=== PATIENT | female | born 1975 | race Caucasian/White ===

== ENCOUNTER 2020-11-23 10:45 | Emergency (ER) | payer OTHER ==
[~2020-11-23] VITALS: Ht 167.6 cm; Wt 61.4 kg
[2020-11-23 12:30] LABS: BASOPHILS % (AUTO) 0.6 % (0.0-2.0); EOSINOPHILS % (AUTO) 0.5 % (1.0-6.0); HEMATOCRIT 36.9 % (36-46); HEMOGLOBIN 12.7 g/dL (12.0-16.0); LYMPHOCYTES # (AUTO) 1.7 K/uL (1.0-4.8); LYMPHOCYTES % (AUTO) 17.2 % (22.0-44.0); MEAN CORPUSCULAR HEMOGLOBIN 28.6 pg (26.0-34.0); MEAN CORPUSCULAR HGB CONC 34.4 G/dL (31.0-37.0); MEAN CORPUSCULAR VOLUME 83 fL (80-100); MONOCYTES # (AUTO) 0.7 K/uL (0.1-1.0); MONOCYTES % (AUTO) 6.7 % (2.0-9.0); NEUTROPHILS # (AUTO) 7.6 K/uL (1.8-7.7); PLATELET COUNT (AUTO) 255 K/uL (150-450); RED BLOOD CELL COUNT(AUTO) 4.43 MIL/uL (4.00-5.20); RED CELL DISTRIBUTION WIDTH 13.9 % (11.5-14.5)
[2020-11-23 12:43] LABS: ANION GAP 11 mmol/L (8-16); CALCIUM, TOTAL 8.5 mg/dL (8.8-10.5); CARBON DIOXIDE 25 mmol/L (22-29); CHLORIDE 101 mmol/L (98-107); CREATININE 0.63 mg/dL (0.60-1.30); GLOMERULAR FILTR. RATE CALC > 60 mL/min (>60); GLUCOSE,RANDOM 90 mg/dL (70-110); SODIUM SERUM 137 mmol/L (136-145); UREA NITROGEN, BLOOD 17 mg/dL (7-18)
[2020-11-23 12:53] LABS: ALANINE AMINOTRANSFERASE 28 U/L (12-78); ALBUMIN 3.4 g/dL (3.4-5.0); ALKALINE PHOSPHATASE 70 U/L (46-116); ASPARTATE AMINOTRANSFERASE 17 U/L (15-37); BILIRUBIN,TOTAL 0.4 mg/dL (0.1-1.0); HCG,QUANTITATIVE < 1 mIU/mL (0-6); TOTAL PROTEIN, SERUM 7.1 g/dL (6.4-8.2)
[2020-11-23 13:30] VITALS: BP 121/73
[2020-11-23 13:49] LABS: AMPHET/METH SCREEN,URINE POSITIVE (NEGATIVE); BARBITURATE SCREEN, URINE NEGATIVE (NEGATIVE); BENZODIAZEPINES SCREEN,URINE NEGATIVE (NEGATIVE); CANNABINOID SCREEN,URINE POSITIVE (NEGATIVE); COCAINE SCREEN,URINE NEGATIVE (NEGATIVE); METHADONE SCREEN, URINE NEGATIVE (NEGATIVE); OPIATE SCREEN,URINE NEGATIVE (NEGATIVE); PHENCYCLIDINE SCREEN,URINE NEGATIVE (NEGATIVE)
== END 2020-11-23 14:20 | disposition home or self-care (01) ==
LOC: EMS 10:45
DX: F20.9 Schizophrenia, unspecified (principal); L03.011 Cellulitis of right finger; F15.10 Other stimulant abuse, uncomplicated; F17.210 Nicotine dependence, cigarettes, uncomplicated; Z88.6 Allergy status to analgesic agent
CPT/HCPCS: 36415; 80053; 80307; 84702; 85025; 99285; G0480

== ENCOUNTER 2022-07-16 14:42 | Inpatient (IN) | payer MEDICAID, OTHER ==
[~2022-07-16] VITALS: Ht 198.1 cm; Wt 52.0 kg
[2022-07-16] MEDS ORDERED: LORazepam 2 MG/ML VIAL ONE (18:55)
[2022-07-16] MEDS ORDERED: HALOPERIDOL LACTATE 5 MG/ML VIAL ONE (18:55)
[2022-07-16] MEDS ORDERED: DiphenhydrAMINE HCL 50 MG/ML VIAL ONE (18:56)
[2022-07-16] MEDS ORDERED: DiphenhydrAMINE HCL 50 MG/ML VIAL IM ONE (19:00)
[2022-07-16] MEDS ORDERED: HALOPERIDOL LACTATE 5 MG/ML VIAL IM ONE (19:00)
[2022-07-16] MEDS ORDERED: LORazepam 2 MG/ML VIAL IM ONE (19:00)
[2022-07-16 19:18] LABS: AMPHET/METH SCREEN,URINE POSITIVE (NEGATIVE); BARBITURATE SCREEN, URINE NEGATIVE (NEGATIVE); BENZODIAZEPINES SCREEN,URINE NEGATIVE (NEGATIVE); CANNABINOID SCREEN,URINE POSITIVE (NEGATIVE); COCAINE SCREEN,URINE NEGATIVE (NEGATIVE); METHADONE SCREEN, URINE NEGATIVE (NEGATIVE); OPIATE SCREEN,URINE NEGATIVE (NEGATIVE); PHENCYCLIDINE SCREEN,URINE NEGATIVE (NEGATIVE)
[2022-07-16 20:01] LABS: BASOPHILS % (AUTO) 0.7 % (0.0-2.0); HEMATOCRIT 38.6 % (36-46); HEMOGLOBIN 12.7 g/dL (12.0-16.0); LYMPHOCYTES # (AUTO) 2.8 K/uL (1.0-4.8); LYMPHOCYTES % (AUTO) 23.2 % (22.0-44.0); MEAN CORPUSCULAR VOLUME 85 fL (80-100); MONOCYTES # (AUTO) 0.6 K/uL (0.1-1.0); NEUTROPHILS # (AUTO) 8.5 K/uL (1.8-7.7); NEUTROPHILS % (AUTO) 70.1 % (40.0-70.0); PLATELET COUNT (AUTO) 273 K/uL (150-450); RED BLOOD CELL COUNT(AUTO) 4.55 MIL/uL (4.00-5.20); RED CELL DISTRIBUTION WIDTH 14.9 % (11.5-14.5)
[2022-07-16 20:12] LABS: ANION GAP 7 mmol/L (8-16); CALCIUM, TOTAL 8.6 mg/dL (8.8-10.5); CARBON DIOXIDE 24 mmol/L (22-29); CHLORIDE 105 mmol/L (98-107); GLUCOSE,RANDOM 94 mg/dL (70-110); POTASSIUM 3.7 mmol/L (3.5-5.1); SODIUM SERUM 136 mmol/L (136-145); UREA NITROGEN, BLOOD 14 mg/dL (7-18)
[2022-07-16 20:14] LABS: GLOMERULAR FILTR. RATE CALC > 60 mL/min (>60)
[2022-07-16 20:18] LABS: ALANINE AMINOTRANSFERASE 25 U/L (12-78); ALBUMIN 3.7 g/dL (3.4-5.0); ALKALINE PHOSPHATASE 48 U/L (46-116); ASPARTATE AMINOTRANSFERASE 19 U/L (15-37); BILIRUBIN,TOTAL 0.4 mg/dL (0.1-1.0); TOTAL PROTEIN, SERUM 6.6 g/dL (6.4-8.2)
[2022-07-16] MEDS ORDERED: ZOLPIDEM TARTRATE 10 MG TABLET PO PRN (21:30)
[2022-07-16] MEDS ORDERED: LORazepam 2 MG TABLET PO PRN (21:30)
[2022-07-16] MEDS ORDERED: OLANZapine 5 MG RAPDIS TABLET PO PRN (21:30)
[2022-07-16 22:07] LABS: COVID AG,FIA SOURCE NASAL SWAB
[2022-07-17 04:58] VITALS: BP 104/65
[2022-07-17 09:05] VITALS: BP 99/54
[2022-07-17] MEDS ORDERED: TUBERCULIN, PURIFIED PROTEIN DERIVATIVE 5 TU/0.1 ML SYRINGE ID ONE (12:15)
[2022-07-17] MEDS ORDERED: ACETAMINOPHEN 325 MG TABLET PO PRN (12:15)
[2022-07-17] MEDS ORDERED: PROMETHAZINE HCL 25 MG TABLET PO PRN (12:15)
[2022-07-17] MEDS ORDERED: LOPERAMIDE HCL 2 MG CAPSULE PO PRN (12:15)
[2022-07-17] MEDS ORDERED: HydrOXYzine PAMOATE 50 MG CAPSULE PO PRN (12:15)
[2022-07-17] MEDS ORDERED: MAGNESIUM HYDROXIDE SUSPENSION 30 ML UDCUP PO PRN (12:15)
[2022-07-17] MEDS ORDERED: GuaiFENesin/D-METHORPHAN [SUGAR-FREE] 200-20MG/10 ML SYRUP UDCUP PO PRN (12:15)
[2022-07-17] MEDS ORDERED: MAG HYDROX/AL HYDROX/SIMETH ES 30 ML SUSPENSION UDCUP PO PRN (12:15)
[2022-07-17] MEDS ORDERED: DiphenhydrAMINE HCL 50 MG/ML VIAL IM ONE ×2 (13:45→20:45)
[2022-07-17] MEDS ORDERED: HALOPERIDOL LACTATE 5 MG/ML VIAL IM ONE (13:45)
[2022-07-17] MEDS ORDERED: LORazepam 2 MG/ML VIAL IM ONE (13:45)
[2022-07-17] MEDS ORDERED: THIAMINE 100 MG TABLET PO SCH (17:00)
[2022-07-17] MEDS ORDERED: BENZTROPINE MESYLATE 2 MG TABLET PO ONE (20:45)
[2022-07-17] MEDS ORDERED: OLANZapine 5 MG RAPDIS TABLET PO SCH (21:00)
[2022-07-17] MEDS ORDERED: MELATONIN 5 MG TABLET PO SCH (21:00)
[2022-07-18] MEDS ORDERED: OMEGA-3/DHA/EPA/FISH OIL 1,000 MG CAPSULE PO SCH (09:00)
[2022-07-18] MEDS ORDERED: NALTREXONE HCL 50 MG TABLET PO SCH (09:00)
[2022-07-18] MEDS ORDERED: BENZTROPINE MESYLATE 2 MG TABLET PO SCH (09:00)
[2022-07-18] MEDS ORDERED: MULTIVITAMINS WITH MINERALS, THERAPEUTIC TABLET PO SCH (09:00)
[2022-07-18] MEDS ORDERED: FOLIC ACID 1 MG TABLET PO SCH (09:00)
== END 2022-07-18 00:30 | disposition short-term general hospital (02) | DRG 750 ==
LOC: EMS 14:46 → B3A 21:57
PROVIDERS: ADMIT Psychiatry & Neurology Psychiatry; ATTEND Psychiatry & Neurology Psychiatry
DX: F20.0 Paranoid schizophrenia (principal); Z91.19 Patient's noncompliance with other medical treatment and regimen; T78.3XXA Angioneurotic edema, initial encounter; Z20.822 Contact with and (suspected) exposure to COVID-19; Z55.9 Problems related to education and literacy, unspecified; Z59.9 Problem related to housing and economic circumstances, unspecified; Z63.9 Problem related to primary support group, unspecified; Z65.3 Problems related to other legal circumstances; Z87.891 Personal history of nicotine dependence; Z79.899 Other long term (current) drug therapy; Z88.8 Allergy status to other drugs, medicaments and biological substances; Y92.89 Other specified places as the place of occurrence of the external cause
CPT/HCPCS: 80053; 85025; 99291; G0480; J1200; J1630; J2060

== ENCOUNTER 2022-08-01 05:08 | Inpatient (IN) | payer MEDICAID ==
[~2022-08-01] VITALS: Ht 165.1 cm; Wt 52.7 kg
[2022-08-01] MEDS ORDERED: CETI-450 PO (18:11)
[2022-08-01] MEDS ORDERED: FOLI-130 PO (18:11)
[2022-08-01] MEDS ORDERED: OLAN5TAB52 PO (18:12)
[2022-08-01] MEDS ORDERED: MULT-1203 PO (18:12)
[2022-08-01] MEDS ORDERED: HEPA500018 SQ (18:12)
[2022-08-01] MEDS ORDERED: VALP250C48 PO (18:13)
[2022-08-01] MEDS ORDERED: LORA-1001 PO (18:13)
[2022-08-01] MEDS ORDERED: OLAN2.5T29 PO (18:14)
[2022-08-01 23:11] VITALS: BP 146/70
[2022-08-01] MEDS ORDERED: ZOLPIDEM TARTRATE 5 MG TABLET PO PRN (23:15)
[2022-08-01] MEDS ORDERED: OLANZapine 2.5 MG TABLET PO PRN (23:15)
[2022-08-01] MEDS ORDERED: OLANZapine 5 MG TABLET PO PRN (23:30)
[2022-08-02] MEDS ORDERED: FOLIC ACID 1 MG TABLET PO SCH (09:00)
[2022-08-02] MEDS ORDERED: CETIRIZINE HCL 10 MG TABLET PO SCH (09:00)
[2022-08-02] MEDS ORDERED: MULTIVITAMINS WITH MINERALS, THERAPEUTIC TABLET PO SCH (09:00)
[2022-08-02] MEDS ORDERED: VALPROIC ACID 250 MG CAPSULE PO SCH (09:00)
[2022-08-02 09:31] VITALS: BP 102/65
[2022-08-02] MEDS: OLANZapine 5 MG TABLET PO SCH ×2 (09:40→13:29)
[2022-08-02] MEDS ORDERED: MAG HYDROX/AL HYDROX/SIMETH ES 30 ML SUSPENSION UDCUP PO PRN (15:15)
[2022-08-02] MEDS ORDERED: ACETAMINOPHEN 325 MG TABLET PO PRN (15:15)
[2022-08-02] MEDS ORDERED: LOPERAMIDE HCL 2 MG CAPSULE PO PRN (15:15)
[2022-08-02] MEDS ORDERED: GuaiFENesin/D-METHORPHAN [SUGAR-FREE] 200-20MG/10 ML SYRUP UDCUP PO PRN (15:15)
[2022-08-02] MEDS ORDERED: PROMETHAZINE HCL 25 MG TABLET PO PRN (15:15)
[2022-08-02] MEDS ORDERED: ZIPRASIDONE MESYLATE 20 MG/VIAL IM ONE (15:15)
[2022-08-02] MEDS ORDERED: TUBERCULIN, PURIFIED PROTEIN DERIVATIVE 5 TU/0.1 ML SYRINGE ID ONE (15:15)
[2022-08-02] MEDS ORDERED: HydrOXYzine PAMOATE 50 MG CAPSULE PO PRN (15:15)
[2022-08-02] MEDS ORDERED: LORazepam 2 MG TABLET PO PRN (15:15)
[2022-08-02] MEDS ORDERED: MAGNESIUM HYDROXIDE SUSPENSION 30 ML UDCUP PO PRN (15:15)
[2022-08-02] MEDS ORDERED: OLANZapine 5 MG TABLET PO PRN (15:30)
[2022-08-02 16:31] LABS: GLUCOMETER DEV NAME(LOC) 3E.C; GLUCOSE,POINT OF CARE 176 MG/DL (70-110)
[2022-08-02] MEDS ORDERED: THIAMINE 100 MG TABLET PO SCH (17:00)
[2022-08-02] MEDS ORDERED: LURASIDONE HCL 20 MG TABLET PO PRN (17:15)
[2022-08-03] MEDS ORDERED: LURASIDONE HCL 40 MG TABLET PO SCH (07:30)
[2022-08-03] MEDS ORDERED: VALPROIC ACID 250 MG/5 ML SOLUTION UDCUP PO SCH (09:00)
[2022-08-03] MEDS ORDERED: FOLIC ACID 1 MG TABLET PO SCH (09:00)
[2022-08-03] MEDS ORDERED: MULTIVITAMINS WITH MINERALS, THERAPEUTIC TABLET PO SCH (09:00)
== END 2022-08-02 16:17 | disposition home or self-care (01) | DRG 750 ==
LOC: 3EC 22:20
PROVIDERS: ADMIT Psychiatry & Neurology Psychiatry; ATTEND Psychiatry & Neurology Psychiatry
DX: F20.9 Schizophrenia, unspecified (principal); E46 Unspecified protein-calorie malnutrition; D64.9 Anemia, unspecified; D72.829 Elevated white blood cell count, unspecified; T38.0X5A Adverse effect of glucocorticoids and synthetic analogues, initial encounter; E88.09 Other disorders of plasma-protein metabolism, not elsewhere classified; T78.3XXA Angioneurotic edema, initial encounter; Z55.9 Problems related to education and literacy, unspecified; Z59.9 Problem related to housing and economic circumstances, unspecified; Y92.89 Other specified places as the place of occurrence of the external cause; Z68.1 Body mass index [BMI] 19.9 or less, adult; Z63.9 Problem related to primary support group, unspecified; Z65.3 Problems related to other legal circumstances; Z88.8 Allergy status to other drugs, medicaments and biological substances
CPT/HCPCS: 82962; J3486

== ENCOUNTER 2022-08-02 16:22 | Inpatient (IN) | payer MEDICAID, OTHER ==
[~2022-08-02] VITALS: Ht 167.6 cm; Wt 52.5 kg
[~2022-08-02 16:22] MED LIST: CETI-450 PO; FOLI-130 PO; HEPA500018 SQ; LORA-1001 PO; MULT-1203 PO; OLAN2.5T29 PO; OLAN5TAB52 PO; VALP250C48 PO
[2022-08-02] MEDS ORDERED: DiphenhydrAMINE HCL 50 MG/ML VIAL IVP ONE ×2 (16:45→17:00)
[2022-08-02] MEDS ORDERED: EPINEPHrine 1:1,000 [1 MG/ML] VIAL ONE (16:49)
[2022-08-02 16:50] LABS: BASOPHILS % (AUTO) 0.2 % (0.0-2.0); EOSINOPHILS % (AUTO) 0.7 % (1.0-6.0); HEMATOCRIT 41.4 % (36-46); HEMOGLOBIN 13.4 g/dL (12.0-16.0); LYMPHOCYTES # (AUTO) 2.8 K/uL (1.0-4.8); LYMPHOCYTES % (AUTO) 14.5 % (22.0-44.0); MEAN CORPUSCULAR HEMOGLOBIN 28.3 pg (26.0-34.0); MEAN CORPUSCULAR HGB CONC 32.4 G/dL (31.0-37.0); MEAN CORPUSCULAR VOLUME 88 fL (80-100); MONOCYTES # (AUTO) 1.1 K/uL (0.1-1.0); MONOCYTES % (AUTO) 5.6 % (2.0-9.0); NEUTROPHILS # (AUTO) 15.1 K/uL (1.8-7.7); PLATELET COUNT (AUTO) 298 K/uL (150-450); RED BLOOD CELL COUNT(AUTO) 4.74 MIL/uL (4.00-5.20); RED CELL DISTRIBUTION WIDTH 15.5 % (11.5-14.5)
[2022-08-02] MEDS ORDERED: DEXAMETHASONE SOD PHOS 4 MG/ML 5 ML VIAL ONE (16:55)
[2022-08-02 17:00] LABS: ANION GAP 10 mmol/L (8-16); CALCIUM, TOTAL 9.2 mg/dL (8.8-10.5); CARBON DIOXIDE 24 mmol/L (22-29); CHLORIDE 101 mmol/L (98-107); CREATININE 0.63 mg/dL (0.60-1.30); GLOMERULAR FILTR. RATE CALC > 60 mL/min (>60); GLUCOSE,RANDOM 196 mg/dL (70-110); POTASSIUM 4.6 mmol/L (3.5-5.1); SODIUM SERUM 135 mmol/L (136-145); UREA NITROGEN, BLOOD 11 mg/dL (7-18)
[2022-08-02] MEDS ORDERED: SODIUM CHLORIDE 0.9% 1,000 ML IV ONE ×2 (17:00→22:45)
[2022-08-02] MEDS ORDERED: DEXAMETHASONE SOD PHOS 4 MG/ML 5 ML VIAL IVP ONE (17:00)
[2022-08-02] MEDS ORDERED: EPINEPHrine 1:1,000 [1 MG/ML] VIAL IM ONE (17:00)
[2022-08-02 17:06] LABS: PROTHROMBIN TIME 10.4 SEC (9.4-11.6)
[2022-08-02] MEDS ORDERED: ETOMIDATE 2 MG/ML 10 ML VIAL IVP ONE (17:15)
[2022-08-02] MEDS ORDERED: ROCURONIUM BROMIDE 10 MG/ML 5 ML VIAL IVP ONE (17:15)
[2022-08-02] MEDS ORDERED: ROCURONIUM BROMIDE 10 MG/ML 5 ML VIAL ONE (17:19)
[2022-08-02 17:24] LABS: ALANINE AMINOTRANSFERASE 65 U/L (12-78); ALBUMIN 3.6 g/dL (3.4-5.0); ALKALINE PHOSPHATASE 58 U/L (46-116); ASPARTATE AMINOTRANSFERASE 18 U/L (15-37); BILIRUBIN,TOTAL 0.1 mg/dL (0.1-1.0); CREATINE KINASE, TOTAL ONLY 192 U/L (26-192); TOTAL PROTEIN, SERUM 6.9 g/dL (6.4-8.2)
[2022-08-02] MEDS ORDERED: FentaNYL CITRATE PF 100 MCG/2 ML VIAL ONE (17:25)
[2022-08-02] MEDS ORDERED: MIDAZOLAM HCL 5 MG/ML VIAL ONE (17:25)
[2022-08-02] MEDS ORDERED: PROPOFOL 1000 MG/ISO-OSM 100 ML IV PRN (17:30)
[2022-08-02] MEDS: PROPOFOL 1000 MG/ISO-OSM 100 ML IV PRN ×2 (18:06→21:48)
[2022-08-02] MEDS ORDERED: MIDAZOLAM HCL 100 MG in SODIUM CHLORIDE 0.9% 180 ML IV PRN (18:30)
[2022-08-02] MEDS ORDERED: ONDANSETRON HCL 4 MG/2 ML VIAL IVP PRN (18:45)
[2022-08-02] MEDS: SODIUM CHLORIDE 0.9% 1,000 ML IV SCH (18:45)
[2022-08-02 19:37] LABS: ABG BASE EXCESS 2.1 mmol/L (-2.0-3.0); ABG CARBOXYHEMOGLOBIN 0.1 % (0.0-1.5); ABG HCO3 25.5 mmol/L (22.0-26.0); ABG METHEMOGLOBIN 0.3 % (0.0-1.5); ABG OXYGEN SATURATION 99.7 % (95.0-98.0); ABG OXYHEMOGLOBIN 99.3 % (94.0-100.0); ABG PCO2 53 mmHg (35-45); ABG PH 7.342 (7.35-7.450); ABG TOTAL HEMOGLOBIN 13.5 G/dL (12.0-18.0); PO2, ARTERIAL BG 434.4 mmHg (88.0-96.0); SOURCE, BLOOD GAS ARTERIAL; TEMPERATURE, FAHRENHEIT, BG 97.5 FAHREN (96.0-98.6)
[2022-08-02 19:38] LABS: O2 DEVICE,BLOOD GAS VENTILATOR (ROOM AIR); PEEP,BG 5 cm H2O; SITE, BLOOD GAS RT BRACHIAL; VT, ABG 420 ml
[2022-08-02] MEDS ORDERED: FentaNYL CITRATE PF 100 MCG/2 ML VIAL IVP ONE (19:45)
[2022-08-02 19:56] LABS: APPEARANCE,URINE CLEAR (CLEAR); BILIRUBIN,URINE NEGATIVE (NEGATIVE); GLUCOSE, URINE (UA) NEGATIVE (NEGATIVE); KETONES,URINE NEGATIVE (NEGATIVE); LEUKOCYTE ESTERASE ,URINE NEGATIVE (NEGATIVE); NITRATE,URINE NEGATIVE (NEGATIVE); OCCULT BLOOD,URINE NEGATIVE (NEGATIVE); PH,URINE 5.5 (5.0-8.0); PROTEIN,URINE NEGATIVE (NEGATIVE); SPECIFIC GRAVITIY, URINE 1.017 (1.003-1.030); UROBILINOGEN,URINE <=1.0 mg/dL (<=1.0)
[2022-08-02 20:03] LABS: AMPHET/METH SCREEN,URINE NEGATIVE (NEGATIVE); BARBITURATE SCREEN, URINE NEGATIVE (NEGATIVE); BENZODIAZEPINES SCREEN,URINE POSITIVE (NEGATIVE); CANNABINOID SCREEN,URINE NEGATIVE (NEGATIVE); COCAINE SCREEN,URINE NEGATIVE (NEGATIVE); METHADONE SCREEN, URINE NEGATIVE (NEGATIVE); OPIATE SCREEN,URINE NEGATIVE (NEGATIVE)
[2022-08-02 20:05] LABS: PHENCYCLIDINE SCREEN,URINE NEGATIVE (NEGATIVE)
[2022-08-02] MEDS: FentaNYL CIT 1000MCG/0.9% NACL 100 ML IV PRN (20:36)
[2022-08-02] MEDS: PIPERACILLIN/TAZO 3.375 GM/D5W 50 ML IV SCH (21:08)
[2022-08-02] MEDS ORDERED: SODIUM CHLORIDE 0.9% 100 ML ONE (21:09)
[2022-08-02] MEDS ORDERED: IOHEXOL 300 MG/ML 100 ML VIAL ONE (21:09)
[2022-08-02 21:28] LABS: LACTIC ACID 2.7 mmol/L (0.4-2.0)
[2022-08-02] MEDS ORDERED: MIDAZOLAM HCL 5 MG/ML VIAL IVP ONE (21:30)
[2022-08-02] MEDS: FAMOTIDINE 10 MG/ML 2 ML VIAL IVP SCH (21:34)
[2022-08-02] MEDS: PHENYLEPHRINE 200 MG/D5%-WATER 250 ML IV PRN (23:36)
[2022-08-03] MEDS: FentaNYL CIT 1000MCG/0.9% NACL 100 ML IV PRN ×2 (01:55→19:37)
[2022-08-03 04:00] VITALS: BP 116/64
[2022-08-03] MEDS: PIPERACILLIN/TAZO 3.375 GM/D5W 50 ML IV SCH ×4 (04:43→22:13)
[2022-08-03] MEDS ORDERED: PROPOFOL 1000 MG/ISO-OSM 100 ML IV PRN (05:00)
[2022-08-03] MEDS: CHLORHEXIDINE GLUCONATE 0.12% 15 ML UDCUP ORAL RINSE MM SCH ×3 (05:00→22:14)
[2022-08-03] MEDS ORDERED: DiphenhydrAMINE HCL 50 MG/ML VIAL IVP SCH (05:45)
[2022-08-03 08:00] VITALS: BP 105/64
[2022-08-03] MEDS: DiphenhydrAMINE HCL 50 MG/ML VIAL IVP SCH ×4 (09:00→22:13)
[2022-08-03] MEDS: MethylPREDNISolone SOD SUCC 40 MG/ML VIAL IVP SCH (09:00)
[2022-08-03] MEDS: FAMOTIDINE 10 MG/ML 2 ML VIAL IVP SCH ×2 (09:00→22:14)
[2022-08-03] MEDS: CETIRIZINE HCL 10 MG TABLET GT SCH (09:00)
[2022-08-03] MEDS: SODIUM CHLORIDE 0.9% 1,000 ML IV SCH ×2 (09:03→22:13)
[2022-08-03 12:00] VITALS: BP 112/70
[2022-08-03 16:00] VITALS: BP 100/70
[2022-08-03] MEDS: PHENYLEPHRINE 200 MG/D5%-WATER 250 ML IV PRN (19:35)
[2022-08-03 20:00] VITALS: BP 120/77
[2022-08-03] MEDS ORDERED: SODIUM CHLORIDE 0.9% 250 ML IV ONE (22:08)
[2022-08-03] MEDS: HEPARIN SODIUM,PORCINE 5,000 UNITS/ML VIAL SQ SCH (22:14)
[2022-08-03] MEDS: PROPOFOL 1000 MG/ISO-OSM 100 ML IV PRN (23:07)
[2022-08-04] VITALS: BP 145/74
[2022-08-04 04:00] VITALS: BP 102/54
[2022-08-04] MEDS: PIPERACILLIN/TAZO 3.375 GM/D5W 50 ML IV SCH ×4 (04:33→20:10)
[2022-08-04] MEDS: FentaNYL CIT 1000MCG/0.9% NACL 100 ML IV PRN ×2 (04:53→14:04)
[2022-08-04] MEDS: MIDAZOLAM HCL 100 MG in SODIUM CHLORIDE 0.9% 180 ML IV PRN (04:55)
[2022-08-04 05:51] LABS: BASOPHILS % (AUTO) 0.2 % (0.0-2.0); EOSINOPHILS % (AUTO) 0.2 % (1.0-6.0); HEMATOCRIT 35.1 % (36-46); HEMOGLOBIN 11.7 g/dL (12.0-16.0); LYMPHOCYTES # (AUTO) 4.7 K/uL (1.0-4.8); LYMPHOCYTES % (AUTO) 26.1 % (22.0-44.0); MEAN CORPUSCULAR HGB CONC 33.3 G/dL (31.0-37.0); MEAN CORPUSCULAR VOLUME 87 fL (80-100); MONOCYTES # (AUTO) 1.4 K/uL (0.1-1.0); MONOCYTES % (AUTO) 7.6 % (2.0-9.0); NEUTROPHILS # (AUTO) 11.8 K/uL (1.8-7.7); NEUTROPHILS % (AUTO) 65.9 % (40.0-70.0); PLATELET COUNT (AUTO) 363 K/uL (150-450); RED BLOOD CELL COUNT(AUTO) 4.02 MIL/uL (4.00-5.20); RED CELL DISTRIBUTION WIDTH 15.4 % (11.5-14.5)
[2022-08-04 06:14] LABS: ALANINE AMINOTRANSFERASE 42 U/L (12-78); ALBUMIN 2.9 g/dL (3.4-5.0); ALKALINE PHOSPHATASE 47 U/L (46-116); ANION GAP 8 mmol/L (8-16); ASPARTATE AMINOTRANSFERASE 10 U/L (15-37); BILIRUBIN,TOTAL 0.2 mg/dL (0.1-1.0); CALCIUM, TOTAL 8.9 mg/dL (8.8-10.5); CARBON DIOXIDE 29 mmol/L (22-29); CHLORIDE 106 mmol/L (98-107); CREATININE 0.48 mg/dL (0.60-1.30); GLUCOSE,RANDOM 120 mg/dL (70-110); POTASSIUM 4.1 mmol/L (3.5-5.1); SODIUM SERUM 143 mmol/L (136-145); UREA NITROGEN, BLOOD 7 mg/dL (7-18)
[2022-08-04 06:15] LABS: GLOMERULAR FILTR. RATE CALC > 60 mL/min (>60)
[2022-08-04] MEDS: PROPOFOL 1000 MG/ISO-OSM 100 ML IV PRN ×2 (07:23→20:09)
[2022-08-04 08:00] VITALS: BP 108/60
[2022-08-04] MEDS: CHLORHEXIDINE GLUCONATE 0.12% 15 ML UDCUP ORAL RINSE MM SCH ×2 (08:02→20:10)
[2022-08-04] MEDS: CETIRIZINE HCL 10 MG TABLET GT SCH (08:02)
[2022-08-04] MEDS: MethylPREDNISolone SOD SUCC 40 MG/ML VIAL IVP SCH (08:02)
[2022-08-04] MEDS: HEPARIN SODIUM,PORCINE 5,000 UNITS/ML VIAL SQ SCH ×2 (08:03→15:36)
[2022-08-04] MEDS: FAMOTIDINE 10 MG/ML 2 ML VIAL IVP SCH ×2 (08:03→20:10)
[2022-08-04] MEDS: DiphenhydrAMINE HCL 50 MG/ML VIAL IVP SCH ×4 (08:04→20:10)
[2022-08-04] MEDS: NOREPINEPHRINE 8 MG/D5%-WATER 250 ML IV PRN (11:52)
[2022-08-04 12:00] VITALS: BP 100/60
[2022-08-04] MEDS: DEXMEDETOMIDINE HCL 400 MCG in SODIUM CHLORIDE 0.9% 96 ML IV PRN ×2 (13:12→20:08)
[2022-08-04] MEDS: SODIUM CHLORIDE 0.9% 1,000 ML IV SCH (13:22)
[2022-08-04 16:00] VITALS: BP 115/75
[2022-08-04 20:00] VITALS: BP 106/57
[2022-08-05] VITALS: BP 109/65
[2022-08-05] MEDS: HEPARIN SODIUM,PORCINE 5,000 UNITS/ML VIAL SQ SCH ×3 (00:17→15:48)
[2022-08-05] MEDS: FentaNYL CIT 1000MCG/0.9% NACL 100 ML IV PRN ×3 (01:30→21:01)
[2022-08-05] MEDS: PIPERACILLIN/TAZO 3.375 GM/D5W 50 ML IV SCH ×4 (03:44→21:02)
[2022-08-05] MEDS: SODIUM CHLORIDE 0.9% 1,000 ML IV SCH ×2 (03:45→20:58)
[2022-08-05] MEDS: MIDAZOLAM HCL 100 MG in SODIUM CHLORIDE 0.9% 180 ML IV PRN ×2 (03:46→21:00)
[2022-08-05 04:00] VITALS: BP 104/59
[2022-08-05] MEDS: PROPOFOL 1000 MG/ISO-OSM 100 ML IV PRN ×2 (04:34→13:46)
[2022-08-05 08:00] VITALS: BP 94/55
[2022-08-05] MEDS: DiphenhydrAMINE HCL 50 MG/ML VIAL IVP SCH ×4 (08:07→20:57)
[2022-08-05] MEDS: CETIRIZINE HCL 10 MG TABLET GT SCH (08:07)
[2022-08-05] MEDS: MethylPREDNISolone SOD SUCC 40 MG/ML VIAL IVP SCH (08:08)
[2022-08-05] MEDS: FAMOTIDINE 10 MG/ML 2 ML VIAL IVP SCH ×2 (08:08→20:57)
[2022-08-05] MEDS: ETHYL ALCOHOL 62% ANTISEPTIC NASAL SANITIZER 0.6 ML AMPUL NASAL SCH ×2 (08:08→20:57)
[2022-08-05] MEDS: CHLORHEXIDINE GLUCONATE 0.12% 15 ML UDCUP ORAL RINSE MM SCH ×2 (08:08→20:57)
[2022-08-05] MEDS: DEXMEDETOMIDINE HCL 400 MCG in SODIUM CHLORIDE 0.9% 96 ML IV PRN (08:09)
[2022-08-05 10:47] LABS: BASOPHILS % (AUTO) 0.2 % (0.0-2.0); EOSINOPHILS % (AUTO) 0.1 % (1.0-6.0); HEMATOCRIT 31.4 % (36-46); HEMOGLOBIN 10.6 g/dL (12.0-16.0); LYMPHOCYTES % (AUTO) 8.2 % (22.0-44.0); MEAN CORPUSCULAR HEMOGLOBIN 29.1 pg (26.0-34.0); MEAN CORPUSCULAR HGB CONC 33.6 G/dL (31.0-37.0); MEAN CORPUSCULAR VOLUME 87 fL (80-100); MONOCYTES # (AUTO) 0.6 K/uL (0.1-1.0); MONOCYTES % (AUTO) 4.4 % (2.0-9.0); PLATELET COUNT (AUTO) 227 K/uL (150-450); RED BLOOD CELL COUNT(AUTO) 3.62 MIL/uL (4.00-5.20); RED CELL DISTRIBUTION WIDTH 15.3 % (11.5-14.5)
[2022-08-05 10:48] LABS: NEUTROPHILS % (AUTO) 87.1 % (40.0-70.0)
[2022-08-05 11:22] LABS: ANION GAP 7 mmol/L (8-16); CALCIUM, TOTAL 8.1 mg/dL (8.8-10.5); CARBON DIOXIDE 29 mmol/L (22-29); CHLORIDE 103 mmol/L (98-107); CREATININE 0.75 mg/dL (0.60-1.30); GLUCOSE,RANDOM 140 mg/dL (70-110); PHOSPHORUS 4.1 mg/dL (2.5-4.9); SODIUM SERUM 139 mmol/L (136-145); UREA NITROGEN, BLOOD 11 mg/dL (7-18)
[2022-08-05 11:23] LABS: GLOMERULAR FILTR. RATE CALC > 60 mL/min (>60)
[2022-08-05] MEDS ORDERED: MAGNESIUM SULFATE 2 GM/WATER 50 ML IV ONE (11:45)
[2022-08-05 12:00] VITALS: BP 109/45
[2022-08-05 16:00] VITALS: BP 109/72
[2022-08-05 20:00] VITALS: BP 110/64
[2022-08-06] VITALS (9 sets, daily range): BP systolic 89–111; BP diastolic 45–75
[2022-08-06] MEDS: HEPARIN SODIUM,PORCINE 5,000 UNITS/ML VIAL SQ SCH ×3 (00:32→16:29)
[2022-08-06] MEDS: NOREPINEPHRINE 8 MG/D5%-WATER 250 ML IV PRN (00:33)
[2022-08-06] MEDS: PIPERACILLIN/TAZO 3.375 GM/D5W 50 ML IV SCH ×4 (03:11→21:25)
[2022-08-06] MEDS: FentaNYL CIT 1000MCG/0.9% NACL 100 ML IV PRN ×3 (04:36→21:01)
[2022-08-06] MEDS: PROPOFOL 1000 MG/ISO-OSM 100 ML IV PRN ×3 (04:36→19:04)
[2022-08-06 05:21] LABS: BASOPHILS % (AUTO) 0.2 % (0.0-2.0); EOSINOPHILS % (AUTO) 0.5 % (1.0-6.0); HEMATOCRIT 28.8 % (36-46); HEMOGLOBIN 9.8 g/dL (12.0-16.0); LYMPHOCYTES # (AUTO) 2.8 K/uL (1.0-4.8); LYMPHOCYTES % (AUTO) 21.3 % (22.0-44.0); MEAN CORPUSCULAR HEMOGLOBIN 29.3 pg (26.0-34.0); MEAN CORPUSCULAR HGB CONC 34.1 G/dL (31.0-37.0); MEAN CORPUSCULAR VOLUME 86 fL (80-100); MONOCYTES # (AUTO) 1.1 K/uL (0.1-1.0); NEUTROPHILS # (AUTO) 9.3 K/uL (1.8-7.7); PLATELET COUNT (AUTO) 250 K/uL (150-450); RED BLOOD CELL COUNT(AUTO) 3.35 MIL/uL (4.00-5.20); RED CELL DISTRIBUTION WIDTH 14.8 % (11.5-14.5)
[2022-08-06 05:33] LABS: ANION GAP 4 mmol/L (8-16); CALCIUM, TOTAL 8.1 mg/dL (8.8-10.5); CARBON DIOXIDE 30 mmol/L (22-29); CHLORIDE 105 mmol/L (98-107); CREATININE 0.61 mg/dL (0.60-1.30); GLUCOSE,RANDOM 118 mg/dL (70-110); PHOSPHORUS 3.8 mg/dL (2.5-4.9); POTASSIUM 3.4 mmol/L (3.5-5.1); SODIUM SERUM 139 mmol/L (136-145); UREA NITROGEN, BLOOD 11 mg/dL (7-18)
[2022-08-06 05:34] LABS: GLOMERULAR FILTR. RATE CALC > 60 mL/min (>60)
[2022-08-06] MEDS: CETIRIZINE HCL 10 MG TABLET GT SCH (09:14)
[2022-08-06] MEDS: DiphenhydrAMINE HCL 50 MG/ML VIAL IVP SCH ×4 (09:15→21:25)
[2022-08-06] MEDS: FAMOTIDINE 10 MG/ML 2 ML VIAL IVP SCH ×2 (09:16→21:25)
[2022-08-06] MEDS: MethylPREDNISolone SOD SUCC 40 MG/ML VIAL IVP SCH (09:16)
[2022-08-06] MEDS: CHLORHEXIDINE GLUCONATE 0.12% 15 ML UDCUP ORAL RINSE MM SCH ×2 (09:17→21:25)
[2022-08-06] MEDS: ETHYL ALCOHOL 62% ANTISEPTIC NASAL SANITIZER 0.6 ML AMPUL NASAL SCH ×2 (09:19→21:25)
[2022-08-06] MEDS: SODIUM CHLORIDE 0.9% 1,000 ML IV SCH (13:20)
[2022-08-06] MEDS: POTASSIUM CHL 10 MEQ/WATER 50 ML IV SCH ×4 (18:38→21:25)
[2022-08-07] VITALS (9 sets, daily range): BP systolic 95–153; BP diastolic 46–93
[2022-08-07] MEDS: HEPARIN SODIUM,PORCINE 5,000 UNITS/ML VIAL SQ SCH ×4 (00:02→23:36)
[2022-08-07] MEDS: PROPOFOL 1000 MG/ISO-OSM 100 ML IV PRN ×4 (00:35→18:51)
[2022-08-07] MEDS: PIPERACILLIN/TAZO 3.375 GM/D5W 50 ML IV SCH ×4 (03:07→21:05)
[2022-08-07] MEDS: MIDAZOLAM HCL 100 MG in SODIUM CHLORIDE 0.9% 180 ML IV PRN ×2 (04:08→16:06)
[2022-08-07] MEDS: SODIUM CHLORIDE 0.9% 1,000 ML IV SCH ×2 (05:14→14:54)
[2022-08-07 05:46] LABS: BASOPHILS % (AUTO) 0.2 % (0.0-2.0); EOSINOPHILS % (AUTO) 1.4 % (1.0-6.0); HEMATOCRIT 30.1 % (36-46); HEMOGLOBIN 10.3 g/dL (12.0-16.0); LYMPHOCYTES # (AUTO) 3.1 K/uL (1.0-4.8); LYMPHOCYTES % (AUTO) 30.9 % (22.0-44.0); MEAN CORPUSCULAR HEMOGLOBIN 29.4 pg (26.0-34.0); MEAN CORPUSCULAR HGB CONC 34.2 G/dL (31.0-37.0); MEAN CORPUSCULAR VOLUME 86 fL (80-100); MONOCYTES # (AUTO) 0.7 K/uL (0.1-1.0); MONOCYTES % (AUTO) 6.7 % (2.0-9.0); NEUTROPHILS % (AUTO) 60.8 % (40.0-70.0); PLATELET COUNT (AUTO) 254 K/uL (150-450)
[2022-08-07 06:01] LABS: ANION GAP 6 mmol/L (8-16); CALCIUM, TOTAL 8.4 mg/dL (8.8-10.5); CARBON DIOXIDE 28 mmol/L (22-29); CHLORIDE 105 mmol/L (98-107); CREATININE 0.69 mg/dL (0.60-1.30); GLOMERULAR FILTR. RATE CALC > 60 mL/min (>60); GLUCOSE,RANDOM 96 mg/dL (70-110); PHOSPHORUS 3.7 mg/dL (2.5-4.9); POTASSIUM 3.4 mmol/L (3.5-5.1); SODIUM SERUM 139 mmol/L (136-145); UREA NITROGEN, BLOOD 8 mg/dL (7-18)
[2022-08-07] MEDS: FentaNYL CIT 1000MCG/0.9% NACL 100 ML IV PRN ×2 (06:57→21:08)
[2022-08-07] MEDS: DiphenhydrAMINE HCL 50 MG/ML VIAL IVP SCH ×4 (10:04→21:06)
[2022-08-07] MEDS: MethylPREDNISolone SOD SUCC 40 MG/ML VIAL IVP SCH (10:05)
[2022-08-07] MEDS: CHLORHEXIDINE GLUCONATE 0.12% 15 ML UDCUP ORAL RINSE MM SCH ×2 (10:05→21:05)
[2022-08-07] MEDS: CETIRIZINE HCL 10 MG TABLET GT SCH (10:05)
[2022-08-07] MEDS: FAMOTIDINE 10 MG/ML 2 ML VIAL IVP SCH ×2 (10:05→21:06)
[2022-08-07] MEDS: ETHYL ALCOHOL 62% ANTISEPTIC NASAL SANITIZER 0.6 ML AMPUL NASAL SCH ×2 (10:45→21:06)
[2022-08-07] MEDS ORDERED: MAGNESIUM SULFATE 2 GM/WATER 50 ML IV ONE (17:15)
[2022-08-07] MEDS ORDERED: POTASSIUM CHLORIDE 10% 40 MEQ/30 ML LIQUID UDCUP NG ONE (17:15)
[2022-08-07 22:52] LABS: GLUCOSE,POINT OF CARE 100 MG/DL (70-110)
[2022-08-07] MEDS ORDERED: LORazepam 2 MG/ML VIAL IVP PRN (23:00)
[2022-08-07] MEDS: VALPROATE SODIUM 1,000 MG in DEXTROSE 5%-WATER 100 ML IV SCH (23:36)
[2022-08-08] VITALS: BP 105/56
[2022-08-08] MEDS: PIPERACILLIN/TAZO 3.375 GM/D5W 50 ML IV SCH ×4 (02:37→20:27)
[2022-08-08] MEDS: PROPOFOL 1000 MG/ISO-OSM 100 ML IV PRN ×5 (02:39→22:52)
[2022-08-08] MEDS: SODIUM CHLORIDE 0.9% 1,000 ML IV SCH ×2 (02:49→20:18)
[2022-08-08 04:00] VITALS: BP 101/57
[2022-08-08] MEDS: MIDAZOLAM HCL 100 MG in SODIUM CHLORIDE 0.9% 180 ML IV PRN ×2 (05:59→21:18)
[2022-08-08 06:08] LABS: BASOPHILS % (AUTO) 0.3 % (0.0-2.0); HEMATOCRIT 28.1 % (36-46); HEMOGLOBIN 9.5 g/dL (12.0-16.0); LYMPHOCYTES # (AUTO) 3.1 K/uL (1.0-4.8); LYMPHOCYTES % (AUTO) 23.4 % (22.0-44.0); MEAN CORPUSCULAR HEMOGLOBIN 29.4 pg (26.0-34.0); MEAN CORPUSCULAR HGB CONC 33.7 G/dL (31.0-37.0); MEAN CORPUSCULAR VOLUME 87 fL (80-100); MONOCYTES # (AUTO) 0.9 K/uL (0.1-1.0); MONOCYTES % (AUTO) 7.1 % (2.0-9.0); NEUTROPHILS # (AUTO) 9.1 K/uL (1.8-7.7); NEUTROPHILS % (AUTO) 68.2 % (40.0-70.0); PLATELET COUNT (AUTO) 271 K/uL (150-450); RED BLOOD CELL COUNT(AUTO) 3.23 MIL/uL (4.00-5.20)
[2022-08-08 06:21] LABS: ANION GAP 6 mmol/L (8-16); CARBON DIOXIDE 28 mmol/L (22-29); CHLORIDE 106 mmol/L (98-107); CREATININE 0.59 mg/dL (0.60-1.30); GLUCOSE,RANDOM 103 mg/dL (70-110); POTASSIUM 3.3 mmol/L (3.5-5.1); SODIUM SERUM 140 mmol/L (136-145); UREA NITROGEN, BLOOD 9 mg/dL (7-18)
[2022-08-08 06:22] LABS: GLOMERULAR FILTR. RATE CALC > 60 mL/min (>60)
[2022-08-08 08:00] VITALS: BP 96/56
[2022-08-08] MEDS: CHLORHEXIDINE GLUCONATE 0.12% 15 ML UDCUP ORAL RINSE MM SCH ×2 (08:42→20:18)
[2022-08-08] MEDS: DiphenhydrAMINE HCL 50 MG/ML VIAL IVP SCH ×4 (08:42→20:18)
[2022-08-08 08:43] LABS: GLUCOSE,POINT OF CARE 92 MG/DL (70-110)
[2022-08-08] MEDS: MethylPREDNISolone SOD SUCC 40 MG/ML VIAL IVP SCH (08:43)
[2022-08-08] MEDS: OLANZapine 5 MG TABLET NG SCH ×4 (08:43→20:18)
[2022-08-08] MEDS: FAMOTIDINE 10 MG/ML 2 ML VIAL IVP SCH ×2 (08:43→20:18)
[2022-08-08] MEDS: CETIRIZINE HCL 10 MG TABLET GT SCH (08:43)
[2022-08-08] MEDS: HEPARIN SODIUM,PORCINE 5,000 UNITS/ML VIAL SQ SCH ×3 (08:43→22:52)
[2022-08-08] MEDS: ETHYL ALCOHOL 62% ANTISEPTIC NASAL SANITIZER 0.6 ML AMPUL NASAL SCH ×2 (09:47→21:18)
[2022-08-08] MEDS ORDERED: POTASSIUM CHLORIDE 20 MEQ ER TABLET PO PRN (10:30)
[2022-08-08] MEDS: FentaNYL CIT 1000MCG/0.9% NACL 100 ML IV PRN ×2 (10:44→22:52)
[2022-08-08 12:00] VITALS: BP 105/59
[2022-08-08] MEDS ORDERED: LORazepam 2 MG/ML VIAL IVP PRN (15:45)
[2022-08-08] MEDS: POTASSIUM CHL 10 MEQ/WATER 50 ML IV PRN ×3 (15:59→18:15)
[2022-08-08 16:00] VITALS: BP 119/61
[2022-08-08] MEDS: NOREPINEPHRINE 8 MG/D5%-WATER 250 ML IV PRN (18:41)
[2022-08-08 19:00] VITALS: BP 116/69
[2022-08-08 20:12] LABS: GLUCOSE,POINT OF CARE 116 MG/DL (70-110)
[2022-08-08] MEDS: VALPROATE SODIUM 1,000 MG in DEXTROSE 5%-WATER 100 ML IV SCH (23:03)
[2022-08-09] VITALS: BP 103/55
[2022-08-09] MEDS: PIPERACILLIN/TAZO 3.375 GM/D5W 50 ML IV SCH ×4 (02:14→20:42)
[2022-08-09 04:00] VITALS: BP 104/48
[2022-08-09] MEDS: PROPOFOL 1000 MG/ISO-OSM 100 ML IV PRN ×4 (04:35→20:43)
[2022-08-09 05:44] LABS: BASOPHILS % (AUTO) 0.4 % (0.0-2.0); EOSINOPHILS % (AUTO) 0.8 % (1.0-6.0); HEMOGLOBIN 9.8 g/dL (12.0-16.0); LYMPHOCYTES # (AUTO) 2.5 K/uL (1.0-4.8); LYMPHOCYTES % (AUTO) 13.8 % (22.0-44.0); MEAN CORPUSCULAR HEMOGLOBIN 29.1 pg (26.0-34.0); MEAN CORPUSCULAR HGB CONC 33.7 G/dL (31.0-37.0); MEAN CORPUSCULAR VOLUME 86 fL (80-100); MONOCYTES # (AUTO) 1.1 K/uL (0.1-1.0); MONOCYTES % (AUTO) 6.3 % (2.0-9.0); NEUTROPHILS # (AUTO) 14.3 K/uL (1.8-7.7); NEUTROPHILS % (AUTO) 78.7 % (40.0-70.0); PLATELET COUNT (AUTO) 268 K/uL (150-450); RED BLOOD CELL COUNT(AUTO) 3.37 MIL/uL (4.00-5.20); RED CELL DISTRIBUTION WIDTH 15.1 % (11.5-14.5)
[2022-08-09 05:47] LABS: GLUCOSE,POINT OF CARE 80 MG/DL (70-110)
[2022-08-09 05:53] LABS: ANION GAP 6 mmol/L (8-16); CALCIUM, TOTAL 8.3 mg/dL (8.8-10.5); CARBON DIOXIDE 28 mmol/L (22-29); CHLORIDE 106 mmol/L (98-107); CREATININE 0.61 mg/dL (0.60-1.30); GLUCOSE,RANDOM 96 mg/dL (70-110); POTASSIUM 3.4 mmol/L (3.5-5.1); SODIUM SERUM 140 mmol/L (136-145); UREA NITROGEN, BLOOD 9 mg/dL (7-18)
[2022-08-09 05:57] LABS: GLOMERULAR FILTR. RATE CALC > 60 mL/min (>60)
[2022-08-09] MEDS: POTASSIUM CHL 10 MEQ/WATER 50 ML IV PRN ×2 (06:53→08:26)
[2022-08-09 08:00] VITALS: BP 95/55
[2022-08-09] MEDS: SODIUM CHLORIDE 0.9% 1,000 ML IV SCH ×2 (08:26→23:57)
[2022-08-09] MEDS: CHLORHEXIDINE GLUCONATE 0.12% 15 ML UDCUP ORAL RINSE MM SCH ×2 (08:27→20:40)
[2022-08-09] MEDS: FAMOTIDINE 10 MG/ML 2 ML VIAL IVP SCH ×2 (08:27→20:40)
[2022-08-09] MEDS: OLANZapine 5 MG TABLET NG SCH ×4 (08:27→20:41)
[2022-08-09] MEDS: CETIRIZINE HCL 10 MG TABLET GT SCH (08:28)
[2022-08-09] MEDS: MethylPREDNISolone SOD SUCC 40 MG/ML VIAL IVP SCH (08:28)
[2022-08-09] MEDS: HEPARIN SODIUM,PORCINE 5,000 UNITS/ML VIAL SQ SCH ×3 (08:29→23:58)
[2022-08-09] MEDS: DiphenhydrAMINE HCL 50 MG/ML VIAL IVP SCH ×4 (08:29→20:40)
[2022-08-09] MEDS: ETHYL ALCOHOL 62% ANTISEPTIC NASAL SANITIZER 0.6 ML AMPUL NASAL SCH ×2 (09:40→20:41)
[2022-08-09] MEDS: FentaNYL CIT 1000MCG/0.9% NACL 100 ML IV PRN (11:10)
[2022-08-09] MEDS: MIDAZOLAM HCL 100 MG in SODIUM CHLORIDE 0.9% 180 ML IV PRN (11:11)
[2022-08-09 11:40] LABS: ABG BASE EXCESS -1.7 mmol/L (-2.0-3.0); ABG CARBOXYHEMOGLOBIN 0.6 % (0.0-1.5); ABG HCO3 23.7 mmol/L (22.0-26.0); ABG METHEMOGLOBIN 0.3 % (0.0-1.5); ABG OXYGEN CONTENT 15.5 mL/dL (15.0-23.0); ABG OXYGEN SATURATION 96.8 % (95.0-98.0); ABG OXYHEMOGLOBIN 95.9 % (94.0-100.0); ABG PCO2 32 mmHg (35-45); ABG PH 7.462 (7.35-7.450); ABG TOTAL HEMOGLOBIN 11.4 G/dL (12.0-18.0); PO2, ARTERIAL BG 92.5 mmHg (88.0-96.0); SOURCE, BLOOD GAS ARTERIAL; TEMPERATURE, FAHRENHEIT, BG 100.2 FAHREN (96.0-98.6)
[2022-08-09 11:41] LABS: O2 DEVICE,BLOOD GAS VENTILATOR (ROOM AIR); PEEP,BG 0 cm H2O; PRESSURE SUPPORT, BG 0 cm H2O; SITE, BLOOD GAS RT RADIAL; SPONTANEOUS VT, BG 555 ml; VENT MODE, BG Press. Support Vent. (ROOM AIR)
[2022-08-09 12:00] VITALS: BP 88/50
[2022-08-09 16:00] VITALS: BP 108/68
[2022-08-09 20:00] VITALS: BP 118/67
[2022-08-09 20:51] LABS: GLUCOSE,POINT OF CARE 100 MG/DL (70-110)
[2022-08-09] MEDS: VALPROATE SODIUM 1,000 MG in DEXTROSE 5%-WATER 100 ML IV SCH (23:59)
[2022-08-10] VITALS: BP 110/67
[2022-08-10] MEDS: FentaNYL CIT 1000MCG/0.9% NACL 100 ML IV PRN ×3 (01:27→22:37)
[2022-08-10] MEDS: PROPOFOL 1000 MG/ISO-OSM 100 ML IV PRN ×4 (01:27→21:46)
[2022-08-10] MEDS: MIDAZOLAM HCL 100 MG in SODIUM CHLORIDE 0.9% 180 ML IV PRN ×2 (02:23→16:43)
[2022-08-10] MEDS: PIPERACILLIN/TAZO 3.375 GM/D5W 50 ML IV SCH ×4 (02:34→20:33)
[2022-08-10 04:00] VITALS: BP 92/55
[2022-08-10 06:13] LABS: BASOPHILS % (AUTO) 0.2 % (0.0-2.0); EOSINOPHILS % (AUTO) 1.8 % (1.0-6.0); HEMATOCRIT 29.2 % (36-46); HEMOGLOBIN 9.7 g/dL (12.0-16.0); LYMPHOCYTES # (AUTO) 3.4 K/uL (1.0-4.8); LYMPHOCYTES % (AUTO) 22.2 % (22.0-44.0); MEAN CORPUSCULAR HEMOGLOBIN 29.1 pg (26.0-34.0); MEAN CORPUSCULAR HGB CONC 33.4 G/dL (31.0-37.0); MEAN CORPUSCULAR VOLUME 87 fL (80-100); MONOCYTES # (AUTO) 0.8 K/uL (0.1-1.0); MONOCYTES % (AUTO) 5.3 % (2.0-9.0); NEUTROPHILS # (AUTO) 10.7 K/uL (1.8-7.7); NEUTROPHILS % (AUTO) 70.5 % (40.0-70.0); PLATELET COUNT (AUTO) 302 K/uL (150-450); RED BLOOD CELL COUNT(AUTO) 3.34 MIL/uL (4.00-5.20); RED CELL DISTRIBUTION WIDTH 15.5 % (11.5-14.5)
[2022-08-10 06:21] LABS: ANION GAP 8 mmol/L (8-16); CALCIUM, TOTAL 8.6 mg/dL (8.8-10.5); CARBON DIOXIDE 27 mmol/L (22-29); CHLORIDE 106 mmol/L (98-107); CREATININE 0.55 mg/dL (0.60-1.30); GLUCOSE,RANDOM 84 mg/dL (70-110); POTASSIUM 3.5 mmol/L (3.5-5.1); SODIUM SERUM 141 mmol/L (136-145); UREA NITROGEN, BLOOD 8 mg/dL (7-18)
[2022-08-10 06:26] LABS: GLOMERULAR FILTR. RATE CALC > 60 mL/min (>60)
[2022-08-10] MEDS: POTASSIUM CHL 10 MEQ/WATER 50 ML IV PRN ×3 (06:40→11:40)
[2022-08-10 08:00] VITALS: BP 90/51
[2022-08-10] MEDS: CHLORHEXIDINE GLUCONATE 0.12% 15 ML UDCUP ORAL RINSE MM SCH ×2 (09:19→20:34)
[2022-08-10] MEDS: OLANZapine 5 MG TABLET NG SCH ×4 (09:20→20:34)
[2022-08-10] MEDS: MethylPREDNISolone SOD SUCC 40 MG/ML VIAL IVP SCH (09:20)
[2022-08-10] MEDS: DiphenhydrAMINE HCL 50 MG/ML VIAL IVP SCH ×4 (09:21→20:34)
[2022-08-10] MEDS: FAMOTIDINE 10 MG/ML 2 ML VIAL IVP SCH ×2 (09:22→20:34)
[2022-08-10] MEDS: HEPARIN SODIUM,PORCINE 5,000 UNITS/ML VIAL SQ SCH ×3 (09:24→23:46)
[2022-08-10] MEDS: CETIRIZINE HCL 10 MG TABLET GT SCH (09:24)
[2022-08-10] MEDS: NOREPINEPHRINE 8 MG/D5%-WATER 250 ML IV PRN ×2 (10:05→12:11)
[2022-08-10] MEDS: ETHYL ALCOHOL 62% ANTISEPTIC NASAL SANITIZER 0.6 ML AMPUL NASAL SCH ×2 (10:10→20:34)
[2022-08-10 12:00] VITALS: BP 129/65
[2022-08-10] MEDS: ACETYLCYSTEINE 10% 100 MG/ML 4 ML NEB SOLUTION NEB SCH ×2 (13:47→19:14)
[2022-08-10] MEDS: ALBUTEROL SULFATE 2.5 MG/0.5 ML NEB SOLUTION NEB PRN ×2 (13:47→19:14)
[2022-08-10] MEDS: SODIUM CHLORIDE 0.9% 1,000 ML IV SCH (14:36)
[2022-08-10 16:00] VITALS: BP 100/54
[2022-08-10] MEDS: IPRATROPIUM BROMIDE 0.5 MG/2.5 ML NEB SOLUTION NEB PRN (19:14)
[2022-08-10 20:00] VITALS: BP 127/55
[2022-08-10] MEDS: VALPROATE SODIUM 1,000 MG in DEXTROSE 5%-WATER 100 ML IV SCH (22:33)
[2022-08-11] VITALS: BP 120/70
[2022-08-11] MEDS: ALBUTEROL SULFATE 2.5 MG/0.5 ML NEB SOLUTION NEB PRN ×4 (02:02→19:37)
[2022-08-11] MEDS: ACETYLCYSTEINE 10% 100 MG/ML 4 ML NEB SOLUTION NEB SCH ×4 (02:02→19:37)
[2022-08-11] MEDS: IPRATROPIUM BROMIDE 0.5 MG/2.5 ML NEB SOLUTION NEB PRN (02:02)
[2022-08-11] MEDS: PROPOFOL 1000 MG/ISO-OSM 100 ML IV PRN ×4 (02:54→17:12)
[2022-08-11] MEDS: PIPERACILLIN/TAZO 3.375 GM/D5W 50 ML IV SCH ×4 (03:04→20:25)
[2022-08-11 04:00] VITALS: BP 110/59
[2022-08-11] MEDS: SODIUM CHLORIDE 0.9% 1,000 ML IV SCH ×2 (05:35→18:01)
[2022-08-11] MEDS: MIDAZOLAM HCL 100 MG in SODIUM CHLORIDE 0.9% 180 ML IV PRN ×2 (06:38→21:32)
[2022-08-11 08:00] VITALS: BP 92/54
[2022-08-11] MEDS: FAMOTIDINE 10 MG/ML 2 ML VIAL IVP SCH ×2 (08:16→20:25)
[2022-08-11] MEDS: MethylPREDNISolone SOD SUCC 40 MG/ML VIAL IVP SCH (08:16)
[2022-08-11] MEDS: OLANZapine 5 MG TABLET NG SCH ×4 (08:17→20:25)
[2022-08-11] MEDS: CETIRIZINE HCL 10 MG TABLET GT SCH (08:17)
[2022-08-11] MEDS: HEPARIN SODIUM,PORCINE 5,000 UNITS/ML VIAL SQ SCH ×3 (08:17→23:13)
[2022-08-11] MEDS: DiphenhydrAMINE HCL 50 MG/ML VIAL IVP SCH ×4 (08:17→20:25)
[2022-08-11] MEDS: CHLORHEXIDINE GLUCONATE 0.12% 15 ML UDCUP ORAL RINSE MM SCH ×2 (08:17→20:25)
[2022-08-11] MEDS: ETHYL ALCOHOL 62% ANTISEPTIC NASAL SANITIZER 0.6 ML AMPUL NASAL SCH ×2 (08:18→20:25)
[2022-08-11 12:00] VITALS: BP 101/59
[2022-08-11] MEDS: FentaNYL CIT 1000MCG/0.9% NACL 100 ML IV PRN (14:53)
[2022-08-11 16:00] VITALS: BP 90/51
[2022-08-11 20:00] VITALS: BP 95/55
[2022-08-11] MEDS: VALPROATE SODIUM 1,000 MG in DEXTROSE 5%-WATER 100 ML IV SCH (23:13)
[2022-08-12] VITALS (7 sets, daily range): BP systolic 3–113; BP diastolic 46–80
[2022-08-12] MEDS: PROPOFOL 1000 MG/ISO-OSM 100 ML IV PRN ×5 (00:34→23:38)
[2022-08-12] MEDS: ALBUTEROL SULFATE 2.5 MG/0.5 ML NEB SOLUTION NEB PRN ×4 (01:50→19:43)
[2022-08-12] MEDS: ACETYLCYSTEINE 10% 100 MG/ML 4 ML NEB SOLUTION NEB SCH ×4 (01:50→19:43)
[2022-08-12] MEDS: PIPERACILLIN/TAZO 3.375 GM/D5W 50 ML IV SCH ×4 (03:06→20:19)
[2022-08-12] MEDS: SODIUM CHLORIDE 0.9% 1,000 ML IV SCH ×2 (05:45→23:35)
[2022-08-12 05:51] LABS: ANION GAP 8 mmol/L (8-16); CALCIUM, TOTAL 8.3 mg/dL (8.8-10.5); CARBON DIOXIDE 25 mmol/L (22-29); CHLORIDE 107 mmol/L (98-107); CREATININE 0.54 mg/dL (0.60-1.30); GLUCOSE,RANDOM 82 mg/dL (70-110); SODIUM SERUM 140 mmol/L (136-145); UREA NITROGEN, BLOOD 9 mg/dL (7-18)
[2022-08-12 05:52] LABS: GLOMERULAR FILTR. RATE CALC > 60 mL/min (>60)
[2022-08-12 05:54] LABS: POTASSIUM 2.9 mmol/L (3.5-5.1)
[2022-08-12] MEDS: POTASSIUM CHL 10 MEQ/WATER 50 ML IV PRN ×7 (06:18→20:38)
[2022-08-12] MEDS: FentaNYL CIT 1000MCG/0.9% NACL 100 ML IV PRN ×2 (08:57→17:38)
[2022-08-12] MEDS: ETHYL ALCOHOL 62% ANTISEPTIC NASAL SANITIZER 0.6 ML AMPUL NASAL SCH ×2 (09:00→20:21)
[2022-08-12] MEDS: HEPARIN SODIUM,PORCINE 5,000 UNITS/ML VIAL SQ SCH ×3 (09:48→23:41)
[2022-08-12] MEDS: FAMOTIDINE 10 MG/ML 2 ML VIAL IVP SCH ×2 (09:49→20:19)
[2022-08-12] MEDS: DiphenhydrAMINE HCL 50 MG/ML VIAL IVP SCH ×4 (09:50→20:19)
[2022-08-12] MEDS: OLANZapine 5 MG TABLET NG SCH ×4 (09:51→20:19)
[2022-08-12] MEDS: CHLORHEXIDINE GLUCONATE 0.12% 15 ML UDCUP ORAL RINSE MM SCH ×2 (09:52→20:19)
[2022-08-12] MEDS: CETIRIZINE HCL 10 MG TABLET GT SCH (09:52)
[2022-08-12] MEDS: MIDAZOLAM HCL 100 MG in SODIUM CHLORIDE 0.9% 180 ML IV PRN ×2 (10:44→23:27)
[2022-08-12] MEDS: MethylPREDNISolone SOD SUCC 40 MG/ML VIAL IVP SCH (11:34)
[2022-08-12 11:49] LABS: MAGNESIUM 1.9 mg/dL (1.80-2.40)
[2022-08-12 13:13] LABS: POTASSIUM 3.5 mmol/L (3.5-5.1)
[2022-08-12] MEDS ORDERED: VANCOMYCIN HCL 1 GM in DEXTROSE 5%-WATER 250 ML IV ONE (17:45)
[2022-08-12] MEDS: VALPROATE SODIUM 1,000 MG in DEXTROSE 5%-WATER 100 ML IV SCH (23:26)
[2022-08-12] MEDS: VANCOMYCIN HCL 1 GM in DEXTROSE 5%-WATER 250 ML IV SCH (23:39)
[2022-08-13] VITALS: BP 111/52
[2022-08-13] MEDS: ALBUTEROL SULFATE 2.5 MG/0.5 ML NEB SOLUTION NEB PRN ×4 (01:54→20:03)
[2022-08-13] MEDS: ACETYLCYSTEINE 10% 100 MG/ML 4 ML NEB SOLUTION NEB SCH ×4 (01:54→20:03)
[2022-08-13] MEDS: IPRATROPIUM BROMIDE 0.5 MG/2.5 ML NEB SOLUTION NEB PRN ×3 (01:54→15:05)
[2022-08-13 04:00] VITALS: BP 114/56
[2022-08-13] MEDS: PIPERACILLIN/TAZO 3.375 GM/D5W 50 ML IV SCH ×4 (04:21→20:40)
[2022-08-13] MEDS: FentaNYL CIT 1000MCG/0.9% NACL 100 ML IV PRN ×2 (04:22→16:39)
[2022-08-13 06:14] LABS: ANION GAP 6 mmol/L (8-16); CALCIUM, TOTAL 8.3 mg/dL (8.8-10.5); CARBON DIOXIDE 26 mmol/L (22-29); CHLORIDE 109 mmol/L (98-107); GLUCOSE,RANDOM 76 mg/dL (70-110); POTASSIUM 3.6 mmol/L (3.5-5.1); SODIUM SERUM 141 mmol/L (136-145); UREA NITROGEN, BLOOD 8 mg/dL (7-18)
[2022-08-13 06:16] LABS: GLOMERULAR FILTR. RATE CALC > 60 mL/min (>60)
[2022-08-13] MEDS: PROPOFOL 1000 MG/ISO-OSM 100 ML IV PRN ×3 (07:22→23:13)
[2022-08-13] MEDS: VANCOMYCIN HCL 1 GM in DEXTROSE 5%-WATER 250 ML IV SCH (07:55)
[2022-08-13 08:00] VITALS: BP 120/57
[2022-08-13] MEDS ORDERED: SODIUM CHLORIDE 0.9% 250 ML IV ONE (08:05)
[2022-08-13] MEDS: FAMOTIDINE 10 MG/ML 2 ML VIAL IVP SCH ×2 (08:12→20:08)
[2022-08-13] MEDS: POTASSIUM CHL 10 MEQ/WATER 50 ML IV PRN ×3 (08:12→10:07)
[2022-08-13] MEDS: MethylPREDNISolone SOD SUCC 40 MG/ML VIAL IVP SCH (08:12)
[2022-08-13] MEDS: HEPARIN SODIUM,PORCINE 5,000 UNITS/ML VIAL SQ SCH ×2 (08:13→16:13)
[2022-08-13] MEDS: OLANZapine 5 MG TABLET NG SCH ×4 (08:13→20:07)
[2022-08-13] MEDS: DiphenhydrAMINE HCL 50 MG/ML VIAL IVP SCH ×4 (08:13→20:07)
[2022-08-13] MEDS: CETIRIZINE HCL 10 MG TABLET GT SCH (08:13)
[2022-08-13] MEDS: ETHYL ALCOHOL 62% ANTISEPTIC NASAL SANITIZER 0.6 ML AMPUL NASAL SCH ×2 (08:14→20:08)
[2022-08-13] MEDS: CHLORHEXIDINE GLUCONATE 0.12% 15 ML UDCUP ORAL RINSE MM SCH ×2 (08:14→20:08)
[2022-08-13] MEDS: DEXMEDETOMIDINE HCL 400 MCG in SODIUM CHLORIDE 0.9% 96 ML IV PRN (10:08)
[2022-08-13 12:00] VITALS: BP 129/72
[2022-08-13] MEDS: SODIUM CHLORIDE 0.9% 1,000 ML IV SCH (14:31)
[2022-08-13 16:00] VITALS: BP 142/69
[2022-08-13] MEDS: MIDAZOLAM HCL 100 MG in SODIUM CHLORIDE 0.9% 180 ML IV PRN (16:14)
[2022-08-13 20:00] VITALS: BP 137/77
[2022-08-13] MEDS: VALPROATE SODIUM 1,000 MG in DEXTROSE 5%-WATER 100 ML IV SCH (23:11)
[2022-08-14] VITALS: BP 133/81
[2022-08-14] MEDS: ACETYLCYSTEINE 10% 100 MG/ML 4 ML NEB SOLUTION NEB SCH ×4 (01:39→20:04)
[2022-08-14] MEDS: ALBUTEROL SULFATE 2.5 MG/0.5 ML NEB SOLUTION NEB PRN ×4 (01:40→20:04)
[2022-08-14] MEDS: PIPERACILLIN/TAZO 3.375 GM/D5W 50 ML IV SCH ×4 (03:07→20:39)
[2022-08-14] MEDS: PROPOFOL 1000 MG/ISO-OSM 100 ML IV PRN ×2 (03:14→07:02)
[2022-08-14 04:00] VITALS: BP 110/52
[2022-08-14] MEDS: SODIUM CHLORIDE 0.9% 1,000 ML IV SCH ×2 (04:38→17:49)
[2022-08-14] MEDS ORDERED: SODIUM CHLORIDE 0.9% 250 ML IV ONE (04:49)
[2022-08-14] MEDS: FentaNYL CIT 1000MCG/0.9% NACL 100 ML IV PRN (05:42)
[2022-08-14 06:51] LABS: ANION GAP 9 mmol/L (8-16); CALCIUM, TOTAL 7.5 mg/dL (8.8-10.5); CARBON DIOXIDE 23 mmol/L (22-29); CHLORIDE 112 mmol/L (98-107); CREATININE 0.44 mg/dL (0.60-1.30); GLUCOSE,RANDOM 75 mg/dL (70-110); SODIUM SERUM 144 mmol/L (136-145); UREA NITROGEN, BLOOD 10 mg/dL (7-18)
[2022-08-14 06:56] LABS: GLOMERULAR FILTR. RATE CALC > 60 mL/min (>60)
[2022-08-14] MEDS: MIDAZOLAM HCL 100 MG in SODIUM CHLORIDE 0.9% 180 ML IV PRN (07:01)
[2022-08-14 08:00] VITALS: BP 141/68
[2022-08-14] MEDS: IPRATROPIUM BROMIDE 0.5 MG/2.5 ML NEB SOLUTION NEB PRN ×3 (08:01→20:04)
[2022-08-14] MEDS: VANCOMYCIN HCL 750 MG in DEXTROSE 5%-WATER 250 ML IV SCH ×2 (08:07→20:26)
[2022-08-14] MEDS: HEPARIN SODIUM,PORCINE 5,000 UNITS/ML VIAL SQ SCH ×3 (08:08→17:47)
[2022-08-14] MEDS: OLANZapine 5 MG TABLET NG SCH ×5 (08:49→20:41)
[2022-08-14] MEDS: CETIRIZINE HCL 10 MG TABLET GT SCH (08:49)
[2022-08-14] MEDS: FAMOTIDINE 10 MG/ML 2 ML VIAL IVP SCH ×2 (08:50→20:39)
[2022-08-14] MEDS: CHLORHEXIDINE GLUCONATE 0.12% 15 ML UDCUP ORAL RINSE MM SCH ×2 (08:55→20:40)
[2022-08-14] MEDS: MethylPREDNISolone SOD SUCC 40 MG/ML VIAL IVP SCH (08:56)
[2022-08-14] MEDS: POTASSIUM CHL 10 MEQ/WATER 50 ML IV PRN ×3 (08:57→14:40)
[2022-08-14] MEDS: DiphenhydrAMINE HCL 50 MG/ML VIAL IVP SCH ×4 (09:06→20:40)
[2022-08-14] MEDS: ETHYL ALCOHOL 62% ANTISEPTIC NASAL SANITIZER 0.6 ML AMPUL NASAL SCH ×2 (09:07→20:41)
[2022-08-14 09:56] LABS: ABG A-A DIFF O2 60.6 mmHg (10-20.0); ABG BASE EXCESS -1.4 mmol/L (-2.0-3.0); ABG CARBOXYHEMOGLOBIN 0.3 % (0.0-1.5); ABG HCO3 23.9 mmol/L (22.0-26.0); ABG METHEMOGLOBIN 0.3 % (0.0-1.5); ABG OXYGEN CONTENT 15.8 mL/dL (15.0-23.0); ABG OXYGEN SATURATION 98.7 % (95.0-98.0); ABG OXYHEMOGLOBIN 98.1 % (94.0-100.0); ABG PCO2 31 mmHg (35-45); ABG PH 7.475 (7.35-7.450); ABG TOTAL HEMOGLOBIN 11.2 G/dL (12.0-18.0); CPAP, BG 0 cm H2O; O2 DEVICE,BLOOD GAS VENTILATOR (ROOM AIR); PO2, ARTERIAL BG 153.1 mmHg (88.0-96.0); PRESSURE SUPPORT, BG 8 cm H2O; SITE, BLOOD GAS RT RADIAL; SOURCE, BLOOD GAS ARTERIAL; SPONTANEOUS VT, BG 450 ml; TEMPERATURE, FAHRENHEIT, BG 98.6 FAHREN (96.0-98.6); VENT MODE, BG CPAP (ROOM AIR)
[2022-08-14 12:00] VITALS: BP 130/70
[2022-08-14 16:00] VITALS: BP 151/87
[2022-08-14] MEDS: DEXMEDETOMIDINE HCL 400 MCG in SODIUM CHLORIDE 0.9% 96 ML IV PRN (17:48)
[2022-08-14 20:00] VITALS: BP 130/78
[2022-08-14] MEDS: VALPROATE SODIUM 1,000 MG in DEXTROSE 5%-WATER 100 ML IV SCH (22:51)
[2022-08-15] VITALS: BP 125/92
[2022-08-15] MEDS: ALBUTEROL SULFATE 2.5 MG/0.5 ML NEB SOLUTION NEB PRN ×2 (01:06→20:34)
[2022-08-15] MEDS: ACETYLCYSTEINE 10% 100 MG/ML 4 ML NEB SOLUTION NEB SCH ×4 (01:07→20:34)
[2022-08-15] MEDS: IPRATROPIUM BROMIDE 0.5 MG/2.5 ML NEB SOLUTION NEB PRN ×2 (01:07→20:34)
[2022-08-15] MEDS: PIPERACILLIN/TAZO 3.375 GM/D5W 50 ML IV SCH ×3 (02:57→14:56)
[2022-08-15 04:00] VITALS: BP 124/62
[2022-08-15 08:00] VITALS: BP 116/58
[2022-08-15] MEDS: DiphenhydrAMINE HCL 50 MG/ML VIAL IVP SCH ×4 (08:18→20:38)
[2022-08-15] MEDS: HEPARIN SODIUM,PORCINE 5,000 UNITS/ML VIAL SQ SCH ×4 (08:18→23:05)
[2022-08-15] MEDS: CHLORHEXIDINE GLUCONATE 0.12% 15 ML UDCUP ORAL RINSE MM SCH ×2 (08:18→20:38)
[2022-08-15] MEDS: FAMOTIDINE 10 MG/ML 2 ML VIAL IVP SCH ×2 (08:18→20:38)
[2022-08-15] MEDS: ETHYL ALCOHOL 62% ANTISEPTIC NASAL SANITIZER 0.6 ML AMPUL NASAL SCH ×2 (08:19→20:38)
[2022-08-15] MEDS: VANCOMYCIN HCL 750 MG in DEXTROSE 5%-WATER 250 ML IV SCH ×3 (08:19→23:05)
[2022-08-15] MEDS: CETIRIZINE HCL 10 MG TABLET GT SCH (08:19)
[2022-08-15] MEDS: OLANZapine 5 MG TABLET NG SCH ×4 (08:19→20:38)
[2022-08-15] MEDS: SODIUM CHLORIDE 0.9% 1,000 ML IV SCH ×2 (08:20→23:05)
[2022-08-15 08:33] LABS: ANION GAP 12 mmol/L (8-16); CALCIUM, TOTAL 8.5 mg/dL (8.8-10.5); CARBON DIOXIDE 25 mmol/L (22-29); CHLORIDE 109 mmol/L (98-107); CREATININE 0.49 mg/dL (0.60-1.30); GLUCOSE,RANDOM 96 mg/dL (70-110); SODIUM SERUM 146 mmol/L (136-145); UREA NITROGEN, BLOOD 5 mg/dL (7-18)
[2022-08-15 08:42] LABS: GLOMERULAR FILTR. RATE CALC > 60 mL/min (>60); POTASSIUM 2.9 mmol/L (3.5-5.1)
[2022-08-15] MEDS ORDERED: MethylPREDNISolone SOD SUCC 40 MG/ML VIAL IVP SCH (09:00)
[2022-08-15] MEDS: POTASSIUM CHL 10 MEQ/WATER 50 ML IV PRN ×4 (09:10→13:45)
[2022-08-15 12:00] VITALS: BP 114/54
[2022-08-15] MEDS ORDERED: BISACODYL 10 MG RECTAL RECTAL SUPPOSITORY PR PRN (15:15)
[2022-08-15] MEDS ORDERED: LACTULOSE 20 GM/30 ML SOLUTION UDCUP PO PRN (15:15)
[2022-08-15] MEDS ORDERED: MAGNESIUM HYDROXIDE SUSPENSION 30 ML UDCUP PO PRN (15:15)
[2022-08-15 16:00] VITALS: BP 126/77
[2022-08-15] MEDS: ClonazePAM 0.5 MG TABLET PO SCH ×2 (16:10→20:38)
[2022-08-15 20:00] VITALS: BP 137/79
[2022-08-15] MEDS: VALPROATE SODIUM 1,000 MG in DEXTROSE 5%-WATER 100 ML IV SCH (23:04)
[2022-08-16] VITALS: BP 143/78
[2022-08-16] MEDS: ALBUTEROL SULFATE 2.5 MG/0.5 ML NEB SOLUTION NEB PRN (01:52)
[2022-08-16] MEDS: ACETYLCYSTEINE 10% 100 MG/ML 4 ML NEB SOLUTION NEB SCH (01:52)
[2022-08-16] MEDS: IPRATROPIUM BROMIDE 0.5 MG/2.5 ML NEB SOLUTION NEB PRN (01:52)
[2022-08-16 04:00] VITALS: BP 140/68
[2022-08-16 06:30] LABS: ANION GAP 9 mmol/L (8-16); CALCIUM, TOTAL 8.6 mg/dL (8.8-10.5); CARBON DIOXIDE 26 mmol/L (22-29); CHLORIDE 108 mmol/L (98-107); CREATININE 0.53 mg/dL (0.60-1.30); GLUCOSE,RANDOM 141 mg/dL (70-110); POTASSIUM 3.1 mmol/L (3.5-5.1); SODIUM SERUM 143 mmol/L (136-145); UREA NITROGEN, BLOOD 7 mg/dL (7-18); VALPROIC ACID 36 mcg/mL (50-100)
[2022-08-16 06:44] LABS: GLOMERULAR FILTR. RATE CALC > 60 mL/min (>60)
[2022-08-16] MEDS: POTASSIUM CHL 10 MEQ/WATER 50 ML IV PRN ×3 (06:48→09:58)
[2022-08-16] MEDS ORDERED: ACETYLCYSTEINE 10% 100 MG/ML 4 ML NEB SOLUTION NEB PRN (07:30)
[2022-08-16 08:00] VITALS: BP_SYST 128; BP_SYST 152; BP_DIAS 83; BP_DIAS 88
[2022-08-16] MEDS: ACETAMINOPHEN 325 MG TABLET PO PRN (08:04)
[2022-08-16] MEDS: CETIRIZINE HCL 10 MG TABLET GT SCH (08:05)
[2022-08-16] MEDS: ETHYL ALCOHOL 62% ANTISEPTIC NASAL SANITIZER 0.6 ML AMPUL NASAL SCH ×2 (08:05→21:06)
[2022-08-16] MEDS: ClonazePAM 0.5 MG TABLET PO SCH ×3 (08:05→21:06)
[2022-08-16] MEDS: OLANZapine 5 MG TABLET NG SCH ×4 (08:05→21:16)
[2022-08-16] MEDS: HEPARIN SODIUM,PORCINE 5,000 UNITS/ML VIAL SQ SCH ×2 (08:06→16:00)
[2022-08-16] MEDS: DiphenhydrAMINE HCL 50 MG/ML VIAL IVP SCH ×4 (08:07→21:06)
[2022-08-16] MEDS: MethylPREDNISolone SOD SUCC 40 MG/ML VIAL IVP SCH (08:08)
[2022-08-16] MEDS: FAMOTIDINE 10 MG/ML 2 ML VIAL IVP SCH ×2 (08:09→21:16)
[2022-08-16] MEDS: CHLORHEXIDINE GLUCONATE 0.12% 15 ML UDCUP ORAL RINSE MM SCH ×2 (08:09→21:15)
[2022-08-16] MEDS: VANCOMYCIN HCL 1 GM in DEXTROSE 5%-WATER 250 ML IV SCH ×3 (08:23→23:41)
[2022-08-16] MEDS: LORazepam 2 MG/ML VIAL IVP PRN ×3 (09:58→16:52)
[2022-08-16] MEDS ORDERED: SODIUM CHLORIDE 0.9% 250 ML IV ONE (10:26)
[2022-08-16 12:00] VITALS: BP 140/85
[2022-08-16] MEDS: SODIUM CHLORIDE 0.9% 1,000 ML IV SCH (14:34)
[2022-08-16 16:00] VITALS: BP 139/90
[2022-08-16 20:29] VITALS: BP 115/74
[2022-08-16] MEDS: VALPROATE SODIUM 1,000 MG in DEXTROSE 5%-WATER 100 ML IV SCH (23:33)
[2022-08-17] VITALS (7 sets, daily range): BP systolic 112–135; BP diastolic 74–89
[2022-08-17] MEDS: HEPARIN SODIUM,PORCINE 5,000 UNITS/ML VIAL SQ SCH ×3 (00:01→16:23)
[2022-08-17] MEDS: SODIUM CHLORIDE 0.9% 1,000 ML IV SCH ×2 (03:42→18:00)
[2022-08-17 06:28] LABS: ANION GAP 11 mmol/L (8-16); CALCIUM, TOTAL 8.9 mg/dL (8.8-10.5); CARBON DIOXIDE 25 mmol/L (22-29); CHLORIDE 106 mmol/L (98-107); CREATININE 0.46 mg/dL (0.60-1.30); GLUCOSE,RANDOM 92 mg/dL (70-110); SODIUM SERUM 142 mmol/L (136-145); UREA NITROGEN, BLOOD 6 mg/dL (7-18)
[2022-08-17 06:31] LABS: GLOMERULAR FILTR. RATE CALC > 60 mL/min (>60)
[2022-08-17] MEDS: VANCOMYCIN HCL 1 GM in DEXTROSE 5%-WATER 250 ML IV SCH ×2 (09:01→16:21)
[2022-08-17] MEDS: FAMOTIDINE 10 MG/ML 2 ML VIAL IVP SCH ×2 (09:02→21:12)
[2022-08-17] MEDS: ClonazePAM 0.5 MG TABLET PO SCH ×3 (09:02→21:12)
[2022-08-17] MEDS: CETIRIZINE HCL 10 MG TABLET GT SCH (09:02)
[2022-08-17] MEDS: CHLORHEXIDINE GLUCONATE 0.12% 15 ML UDCUP ORAL RINSE MM SCH ×2 (09:02→21:12)
[2022-08-17] MEDS: MethylPREDNISolone SOD SUCC 40 MG/ML VIAL IVP SCH (09:02)
[2022-08-17] MEDS: OLANZapine 5 MG TABLET NG SCH ×4 (09:02→21:00)
[2022-08-17] MEDS: DiphenhydrAMINE HCL 50 MG/ML VIAL IVP SCH ×4 (09:12→21:00)
[2022-08-17] MEDS: ETHYL ALCOHOL 62% ANTISEPTIC NASAL SANITIZER 0.6 ML AMPUL NASAL SCH ×2 (09:12→21:12)
[2022-08-17] MEDS: LORazepam 2 MG/ML VIAL IVP PRN (10:16)
[2022-08-17 10:21] LABS: BASOPHILS % (AUTO) 0.2 % (0.0-2.0); EOSINOPHILS % (AUTO) 3.2 % (1.0-6.0); HEMATOCRIT 35.3 % (36-46); HEMOGLOBIN 11.9 g/dL (12.0-16.0); LYMPHOCYTES # (AUTO) 2.8 K/uL (1.0-4.8); LYMPHOCYTES % (AUTO) 31.4 % (22.0-44.0); MEAN CORPUSCULAR HEMOGLOBIN 29.2 pg (26.0-34.0); MEAN CORPUSCULAR HGB CONC 33.6 G/dL (31.0-37.0); MEAN CORPUSCULAR VOLUME 87 fL (80-100); MONOCYTES # (AUTO) 0.7 K/uL (0.1-1.0); MONOCYTES % (AUTO) 7.7 % (2.0-9.0); NEUTROPHILS # (AUTO) 5.2 K/uL (1.8-7.7); NEUTROPHILS % (AUTO) 57.5 % (40.0-70.0); PLATELET COUNT (AUTO) 365 K/uL (150-450); RED BLOOD CELL COUNT(AUTO) 4.06 MIL/uL (4.00-5.20); RED CELL DISTRIBUTION WIDTH 15.6 % (11.5-14.5)
[2022-08-17 10:51] LABS: ALANINE AMINOTRANSFERASE 29 U/L (12-78); ALBUMIN 2.9 g/dL (3.4-5.0); ALKALINE PHOSPHATASE 46 U/L (46-116); ASPARTATE AMINOTRANSFERASE 12 U/L (15-37); BILIRUBIN,TOTAL 0.3 mg/dL (0.1-1.0); TOTAL PROTEIN, SERUM 6.4 g/dL (6.4-8.2)
[2022-08-17] MEDS: POTASSIUM CHL 10 MEQ/WATER 50 ML IV PRN (14:11)
[2022-08-17] MEDS: ACETAMINOPHEN 325 MG TABLET PO PRN ×2 (16:22→19:01)
[2022-08-17] MEDS: VALPROATE SODIUM 1,000 MG in DEXTROSE 5%-WATER 100 ML IV SCH (23:58)
[2022-08-18] MEDS: VANCOMYCIN HCL 1 GM in DEXTROSE 5%-WATER 250 ML IV SCH ×4 (01:05→20:12)
[2022-08-18] MEDS: DiphenhydrAMINE HCL 50 MG/ML VIAL IVP SCH ×5 (01:05→20:13)
[2022-08-18 04:31] VITALS: BP 104/73
[2022-08-18 07:46] LABS: ANION GAP 11 mmol/L (8-16); CALCIUM, TOTAL 9.1 mg/dL (8.8-10.5); CARBON DIOXIDE 24 mmol/L (22-29); CHLORIDE 107 mmol/L (98-107); CREATININE 0.52 mg/dL (0.60-1.30); GLOMERULAR FILTR. RATE CALC > 60 mL/min (>60); GLUCOSE,RANDOM 88 mg/dL (70-110); POTASSIUM 3.6 mmol/L (3.5-5.1); SODIUM SERUM 142 mmol/L (136-145); UREA NITROGEN, BLOOD 11 mg/dL (7-18); VANCOMYCIN,RANDOM 12.3 mcg/mL (25.0-50.0)
[2022-08-18 07:48] VITALS: BP 106/78
[2022-08-18] MEDS: HEPARIN SODIUM,PORCINE 5,000 UNITS/ML VIAL SQ SCH ×3 (08:08→16:30)
[2022-08-18] MEDS: SODIUM CHLORIDE 0.9% 1,000 ML IV SCH (08:09)
[2022-08-18] MEDS: CHLORHEXIDINE GLUCONATE 0.12% 15 ML UDCUP ORAL RINSE MM SCH ×2 (08:09→21:00)
[2022-08-18] MEDS: FAMOTIDINE 10 MG/ML 2 ML VIAL IVP SCH ×2 (08:09→20:13)
[2022-08-18] MEDS: ClonazePAM 0.5 MG TABLET PO SCH ×3 (08:10→21:00)
[2022-08-18] MEDS: CETIRIZINE HCL 10 MG TABLET GT SCH (08:10)
[2022-08-18] MEDS: OLANZapine 5 MG TABLET NG SCH ×4 (08:10→20:14)
[2022-08-18] MEDS: ETHYL ALCOHOL 62% ANTISEPTIC NASAL SANITIZER 0.6 ML AMPUL NASAL SCH ×2 (08:10→21:00)
[2022-08-18] MEDS: LORazepam 2 MG/ML VIAL IVP PRN ×2 (09:28→16:31)
[2022-08-18 10:22] VITALS: BP 111/78
[2022-08-18 15:18] VITALS: BP 130/73
[2022-08-18 19:22] VITALS: BP 112/75
[2022-08-18] MEDS: VALPROATE SODIUM 1,000 MG in DEXTROSE 5%-WATER 100 ML IV SCH (23:55)
[2022-08-19] VITALS (7 sets, daily range): BP systolic 94–143; BP diastolic 65–88
[2022-08-19] MEDS: ClonazePAM 0.5 MG TABLET PO SCH ×4 (01:08→20:56)
[2022-08-19] MEDS: LORazepam 2 MG/ML VIAL IVP PRN (01:32)
[2022-08-19] MEDS: VANCOMYCIN HCL 1 GM in DEXTROSE 5%-WATER 250 ML IV SCH ×2 (01:32→08:59)
[2022-08-19] MEDS: SODIUM CHLORIDE 0.9% 1,000 ML IV SCH ×2 (06:59→09:01)
[2022-08-19 07:43] LABS: ANION GAP 11 mmol/L (8-16); CALCIUM, TOTAL 9.3 mg/dL (8.8-10.5); CARBON DIOXIDE 25 mmol/L (22-29); CHLORIDE 104 mmol/L (98-107); CREATININE 0.52 mg/dL (0.60-1.30); GLUCOSE,RANDOM 83 mg/dL (70-110); POTASSIUM 3.8 mmol/L (3.5-5.1); SODIUM SERUM 140 mmol/L (136-145); UREA NITROGEN, BLOOD 10 mg/dL (7-18); VANCOMYCIN,RANDOM 39.4 mcg/mL (25.0-50.0)
[2022-08-19 07:44] LABS: GLOMERULAR FILTR. RATE CALC > 60 mL/min (>60)
[2022-08-19] MEDS: FAMOTIDINE 10 MG/ML 2 ML VIAL IVP SCH ×2 (08:58→20:35)
[2022-08-19] MEDS: CETIRIZINE HCL 10 MG TABLET GT SCH (08:59)
[2022-08-19] MEDS: OLANZapine 5 MG TABLET NG SCH ×4 (08:59→20:35)
[2022-08-19] MEDS: DiphenhydrAMINE HCL 50 MG/ML VIAL IVP SCH ×4 (09:00→20:57)
[2022-08-19] MEDS: CHLORHEXIDINE GLUCONATE 0.12% 15 ML UDCUP ORAL RINSE MM SCH ×2 (09:00→20:35)
[2022-08-19] MEDS: ETHYL ALCOHOL 62% ANTISEPTIC NASAL SANITIZER 0.6 ML AMPUL NASAL SCH ×2 (09:02→20:34)
[2022-08-19] MEDS: HEPARIN SODIUM,PORCINE 5,000 UNITS/ML VIAL SQ SCH ×4 (09:18→23:11)
[2022-08-19] MEDS: ACETAMINOPHEN 325 MG TABLET PO PRN (10:49)
[2022-08-19] MEDS ORDERED: VANCOMYCIN HCL 1 GM in DEXTROSE 5%-WATER 250 ML IV SCH (13:00)
[2022-08-19] MEDS: VANCOMYCIN HCL 750 MG in DEXTROSE 5%-WATER 250 ML IV SCH ×2 (13:16→18:27)
[2022-08-19] MEDS: VALPROATE SODIUM 1,000 MG in DEXTROSE 5%-WATER 100 ML IV SCH (22:48)
[2022-08-20] MEDS: VANCOMYCIN HCL 750 MG in DEXTROSE 5%-WATER 250 ML IV SCH ×4 (00:59→19:45)
[2022-08-20] MEDS: SODIUM CHLORIDE 0.9% 1,000 ML IV SCH ×2 (04:43→17:30)
[2022-08-20 05:08] VITALS: BP 124/72
[2022-08-20 06:49] LABS: ANION GAP 9 mmol/L (8-16); CALCIUM, TOTAL 9.4 mg/dL (8.8-10.5); CARBON DIOXIDE 28 mmol/L (22-29); CHLORIDE 106 mmol/L (98-107); CREATININE 0.61 mg/dL (0.60-1.30); GLUCOSE,RANDOM 104 mg/dL (70-110); POTASSIUM 3.6 mmol/L (3.5-5.1); SODIUM SERUM 143 mmol/L (136-145); UREA NITROGEN, BLOOD 10 mg/dL (7-18); VANCOMYCIN,RANDOM 24.9 mcg/mL (25.0-50.0)
[2022-08-20 06:55] LABS: GLOMERULAR FILTR. RATE CALC > 60 mL/min (>60)
[2022-08-20 08:14] VITALS: BP 105/68
[2022-08-20] MEDS: HEPARIN SODIUM,PORCINE 5,000 UNITS/ML VIAL SQ SCH ×2 (08:46→17:06)
[2022-08-20] MEDS: OLANZapine 5 MG TABLET NG SCH ×4 (08:46→20:05)
[2022-08-20] MEDS: ClonazePAM 0.5 MG TABLET PO SCH ×3 (08:47→20:05)
[2022-08-20] MEDS: CETIRIZINE HCL 10 MG TABLET GT SCH (08:47)
[2022-08-20] MEDS: CHLORHEXIDINE GLUCONATE 0.12% 15 ML UDCUP ORAL RINSE MM SCH ×2 (08:47→20:06)
[2022-08-20] MEDS: FAMOTIDINE 10 MG/ML 2 ML VIAL IVP SCH ×2 (08:47→20:05)
[2022-08-20] MEDS: DiphenhydrAMINE HCL 50 MG/ML VIAL IVP SCH ×4 (08:48→21:16)
[2022-08-20] MEDS: ETHYL ALCOHOL 62% ANTISEPTIC NASAL SANITIZER 0.6 ML AMPUL NASAL SCH ×2 (08:50→20:06)
[2022-08-20 11:59] VITALS: BP 115/69
[2022-08-20 19:45] VITALS: BP 112/65
[2022-08-20] MEDS: VALPROATE SODIUM 1,000 MG in DEXTROSE 5%-WATER 100 ML IV SCH (22:30)
[2022-08-20] MEDS: LORazepam 2 MG/ML VIAL IVP PRN (22:30)
[2022-08-21] MEDS: HEPARIN SODIUM,PORCINE 5,000 UNITS/ML VIAL SQ SCH ×3 (00:40→16:00)
[2022-08-21] MEDS: VANCOMYCIN HCL 750 MG in DEXTROSE 5%-WATER 250 ML IV SCH ×3 (00:56→13:13)
[2022-08-21 05:30] VITALS: BP 108/55
[2022-08-21 06:38] LABS: ANION GAP 11 mmol/L (8-16); CALCIUM, TOTAL 9.1 mg/dL (8.8-10.5); CARBON DIOXIDE 27 mmol/L (22-29); CHLORIDE 105 mmol/L (98-107); CREATININE 0.48 mg/dL (0.60-1.30); GLUCOSE,RANDOM 87 mg/dL (70-110); POTASSIUM 3.9 mmol/L (3.5-5.1); SODIUM SERUM 143 mmol/L (136-145); UREA NITROGEN, BLOOD 9 mg/dL (7-18)
[2022-08-21 06:45] LABS: GLOMERULAR FILTR. RATE CALC > 60 mL/min (>60)
[2022-08-21] MEDS: CETIRIZINE HCL 10 MG TABLET GT SCH (08:01)
[2022-08-21] MEDS: SODIUM CHLORIDE 0.9% 1,000 ML IV SCH (08:01)
[2022-08-21] MEDS: OLANZapine 5 MG TABLET NG SCH ×3 (08:02→17:51)
[2022-08-21] MEDS: ETHYL ALCOHOL 62% ANTISEPTIC NASAL SANITIZER 0.6 ML AMPUL NASAL SCH (08:02)
[2022-08-21] MEDS: FAMOTIDINE 10 MG/ML 2 ML VIAL IVP SCH (08:02)
[2022-08-21] MEDS: ClonazePAM 0.5 MG TABLET PO SCH ×2 (08:02→17:50)
[2022-08-21] MEDS: CHLORHEXIDINE GLUCONATE 0.12% 15 ML UDCUP ORAL RINSE MM SCH (08:02)
[2022-08-21 08:05] VITALS: BP 102/60
[2022-08-21] MEDS ORDERED: PIPERONYL BUTOXIDE/PYRETHRINS 120 ML SHAMPOO TP ONE (10:00)
[2022-08-21] MEDS: LORazepam 2 MG/ML VIAL IVP PRN ×2 (10:29→17:01)
[2022-08-21] MEDS: DiphenhydrAMINE HCL 50 MG/ML VIAL IVP SCH ×3 (10:33→16:00)
[2022-08-21 11:35] VITALS: BP 108/62
[2022-08-21 14:55] VITALS: BP 112/64
[2022-08-21] MEDS ORDERED: CHLO473M6 PO (15:13)
[2022-08-21] MEDS ORDERED: CLON-592 PO (15:14)
[2022-08-21] MEDS ORDERED: FAMO20 PO (15:15)
[2022-08-21] MEDS ORDERED: LORazepam 2 MG/ML VIAL IVP ONE (16:45)
[2022-08-21 17:59] LABS: COVID AG,FIA SOURCE NASAL SWAB
[2022-08-21 19:29] VITALS: BP 110/60
[2022-08-22] MEDS ORDERED: OMEG-135 PO (15:00)
[2022-08-22] MEDS ORDERED: OLAN5TAB94 PO (15:00)
[2022-08-22] MEDS ORDERED: MELA5TAB40 PO (15:00)
[2022-08-22] MEDS ORDERED: NALT50TA PO (15:00)
== END 2022-08-21 20:23 | DRG 130 ==
LOC: EMS 16:22 → ICU 18:26 → 5N 08-16 18:36
PROVIDERS: ADMIT Internal Medicine; ATTEND Internal Medicine
PROC: 5A1955Z Respiratory Ventilation, Greater than 96 Consecutive Hours (ICD-10-PCS; principal; 2022-08-02)
PROC: 0BH17EZ Insertion of Endotracheal Airway into Trachea, Via Natural or Artificial Opening (ICD-10-PCS; 2022-08-02)
PROC: 06HY33Z Insertion of Infusion Device into Lower Vein, Percutaneous Approach (ICD-10-PCS; 2022-08-03)
PROC: B54BZZA Ultrasonography of Right Lower Extremity Veins, Guidance (ICD-10-PCS; 2022-08-03)
DX: J96.00 Acute respiratory failure, unspecified whether with hypoxia or hypercapnia (principal); R65.11 Systemic inflammatory response syndrome (SIRS) of non-infectious origin with acute organ dysfunction; E43 Unspecified severe protein-calorie malnutrition; J15.212 Pneumonia due to Methicillin resistant Staphylococcus aureus; E87.0 Hyperosmolality and hypernatremia; T78.3XXA Angioneurotic edema, initial encounter; F20.0 Paranoid schizophrenia; F15.10 Other stimulant abuse, uncomplicated; D64.9 Anemia, unspecified; E83.42 Hypomagnesemia; E87.6 Hypokalemia; K02.9 Dental caries, unspecified; F17.200 Nicotine dependence, unspecified, uncomplicated; Z78.1 Physical restraint status; Z79.899 Other long term (current) drug therapy
CPT/HCPCS: 31500; 36600; 51702; 70450; 70491; 71045; 71260; 74018; 80048; 80053; 80164; 80202; 81003; 82550; 82805; 82962; 83605; 83735; 84100; 84132; 84145; 85025; 85610; 87040; 87070; 87081; 87186; 92526; 92610; 93005; 94002; 94003; 94640; 97162; 97167; 97535; 99291; G0378; J0171; J1100; J1200; J1644; J2060; J2250; J2370; J2543; J2704; J2920; J3010; J3370; J3475; J3480; J3490; J7030; J7050; J7060; Q9967; 36415-L1; 36415-TC; J7613

== ENCOUNTER 2022-08-21 21:04 | Inpatient (IN) | payer MEDICAID ==
[~2022-08-21] VITALS: Ht 167.6 cm; Wt 53.4 kg
[~2022-08-21 21:04] MED LIST changes: +CHLO473M6 PO; +CLON-592 PO; +FAMO20 PO
[2022-08-22 00:14] VITALS: BP 110/65
[2022-08-22 10:23] VITALS: BP 117/71
[2022-08-22 11:13] LABS: BASOPHILS % (AUTO) 0.8 % (0.0-2.0); EOSINOPHILS % (AUTO) 2.5 % (1.0-6.0); HEMATOCRIT 35.8 % (36-46); HEMOGLOBIN 12.4 g/dL (12.0-16.0); LYMPHOCYTES # (AUTO) 1.9 K/uL (1.0-4.8); LYMPHOCYTES % (AUTO) 20.3 % (22.0-44.0); MEAN CORPUSCULAR HEMOGLOBIN 29.6 pg (26.0-34.0); MEAN CORPUSCULAR HGB CONC 34.5 G/dL (31.0-37.0); MEAN CORPUSCULAR VOLUME 86 fL (80-100); MONOCYTES # (AUTO) 0.6 K/uL (0.1-1.0); MONOCYTES % (AUTO) 6.8 % (2.0-9.0); NEUTROPHILS # (AUTO) 6.6 K/uL (1.8-7.7); NEUTROPHILS % (AUTO) 69.6 % (40.0-70.0); PLATELET COUNT (AUTO) 356 K/uL (150-450); RED BLOOD CELL COUNT(AUTO) 4.19 MIL/uL (4.00-5.20); RED CELL DISTRIBUTION WIDTH 15.5 % (11.5-14.5)
[2022-08-22] MEDS ORDERED: LOPERAMIDE HCL 2 MG CAPSULE PO PRN (11:15)
[2022-08-22] MEDS ORDERED: MAGNESIUM HYDROXIDE SUSPENSION 30 ML UDCUP PO PRN (11:15)
[2022-08-22] MEDS ORDERED: MAG HYDROX/AL HYDROX/SIMETH ES 30 ML SUSPENSION UDCUP PO PRN (11:15)
[2022-08-22] MEDS ORDERED: GuaiFENesin/D-METHORPHAN [SUGAR-FREE] 200-20MG/10 ML SYRUP UDCUP PO PRN (11:15)
[2022-08-22] MEDS ORDERED: PROMETHAZINE HCL 25 MG TABLET PO PRN (11:15)
[2022-08-22] MEDS: OLANZapine 5 MG RAPDIS TABLET PO SCH ×3 (13:43→20:56)
[2022-08-22] MEDS ORDERED: NALT50TA PO (15:00)
[2022-08-22] MEDS ORDERED: MELA5TAB40 PO (15:00)
[2022-08-22] MEDS ORDERED: OMEG-135 PO (15:00)
[2022-08-22] MEDS ORDERED: OLAN5TAB94 PO (15:00)
[2022-08-22 16:58] VITALS: BP 117/77
[2022-08-22] MEDS: THIAMINE 100 MG TABLET PO SCH (17:20)
[2022-08-22] MEDS: LORazepam 2 MG TABLET PO PRN (20:56)
[2022-08-22] MEDS: HydrOXYzine PAMOATE 50 MG CAPSULE PO PRN (22:52)
[2022-08-23 08:31] VITALS: BP 103/65
[2022-08-23] MEDS: MULTIVITAMINS WITH MINERALS, THERAPEUTIC TABLET PO SCH (08:32)
[2022-08-23] MEDS: NALTREXONE HCL 50 MG TABLET PO SCH (08:32)
[2022-08-23] MEDS: OMEGA-3/DHA/EPA/FISH OIL 1,000 MG CAPSULE PO SCH (08:32)
[2022-08-23] MEDS: OLANZapine 5 MG RAPDIS TABLET PO SCH ×2 (08:33→13:51)
[2022-08-23] MEDS: FOLIC ACID 1 MG TABLET PO SCH (08:33)
[2022-08-23] MEDS: THIAMINE 100 MG TABLET PO SCH ×2 (08:33→16:53)
[2022-08-23 09:28] LABS: ALANINE AMINOTRANSFERASE 72 U/L (12-78); ALBUMIN 3.4 g/dL (3.4-5.0); ALKALINE PHOSPHATASE 63 U/L (46-116); ANION GAP 9 mmol/L (8-16); ASPARTATE AMINOTRANSFERASE 21 U/L (15-37); BILIRUBIN,TOTAL 0.2 mg/dL (0.1-1.0); CALCIUM, TOTAL 9.1 mg/dL (8.8-10.5); CARBON DIOXIDE 25 mmol/L (22-29); CHLORIDE 105 mmol/L (98-107); CREATININE 0.76 mg/dL (0.60-1.30); GLUCOSE,RANDOM 107 mg/dL (70-110); POTASSIUM 3.8 mmol/L (3.5-5.1); SODIUM SERUM 139 mmol/L (136-145); TOTAL PROTEIN, SERUM 6.8 g/dL (6.4-8.2); UREA NITROGEN, BLOOD 17 mg/dL (7-18)
[2022-08-23 09:31] LABS: GLOMERULAR FILTR. RATE CALC > 60 mL/min (>60)
[2022-08-23 16:57] VITALS: BP 118/80
[2022-08-23] MEDS: LORazepam 2 MG TABLET PO PRN (21:12)
[2022-08-23] MEDS: OLANZapine 10 MG RAPDIS TABLET PO SCH (21:12)
[2022-08-24] MEDS: HydrOXYzine PAMOATE 50 MG CAPSULE PO PRN ×3 (01:30→16:28)
[2022-08-24 08:57] VITALS: BP 100/62
[2022-08-24] MEDS: OMEGA-3/DHA/EPA/FISH OIL 1,000 MG CAPSULE PO SCH (10:30)
[2022-08-24] MEDS: OLANZapine 5 MG RAPDIS TABLET PO PRN ×2 (10:30→16:26)
[2022-08-24] MEDS: NALTREXONE HCL 50 MG TABLET PO SCH (10:30)
[2022-08-24] MEDS: FOLIC ACID 1 MG TABLET PO SCH (10:30)
[2022-08-24] MEDS: THIAMINE 100 MG TABLET PO SCH ×2 (10:30→16:26)
[2022-08-24] MEDS: MULTIVITAMINS WITH MINERALS, THERAPEUTIC TABLET PO SCH (10:30)
[2022-08-24] MEDS: LORazepam 2 MG TABLET PO PRN ×2 (10:31→16:26)
[2022-08-24 12:56] VITALS: BP 101/60
[2022-08-24 16:12] VITALS: BP 90/54
[2022-08-24] MEDS: MUPIROCIN CALCIUM 2% 22 GM OINTMENT NASAL SCH (16:26)
[2022-08-24 16:28] VITALS: BP 90/61
[2022-08-24] MEDS: ACETAMINOPHEN 325 MG TABLET PO PRN (16:28)
[2022-08-24 17:28] VITALS: BP 102/67
[2022-08-24] MEDS: OLANZapine 10 MG RAPDIS TABLET PO SCH (20:25)
[2022-08-25] MEDS: MULTIVITAMINS WITH MINERALS, THERAPEUTIC TABLET PO SCH (08:18)
[2022-08-25] MEDS: FOLIC ACID 1 MG TABLET PO SCH (08:19)
[2022-08-25] MEDS: OMEGA-3/DHA/EPA/FISH OIL 1,000 MG CAPSULE PO SCH ×2 (08:19→09:00)
[2022-08-25] MEDS: THIAMINE 100 MG TABLET PO SCH ×2 (08:19→16:05)
[2022-08-25] MEDS: MUPIROCIN CALCIUM 2% 22 GM OINTMENT NASAL SCH ×2 (08:19→16:04)
[2022-08-25] MEDS: NALTREXONE HCL 50 MG TABLET PO SCH (08:38)
[2022-08-25 10:36] VITALS: BP 154/82
[2022-08-25] MEDS: LORazepam 2 MG TABLET PO PRN (11:27)
[2022-08-25 16:11] VITALS: BP 115/68
[2022-08-25] MEDS: HydrOXYzine PAMOATE 50 MG CAPSULE PO PRN (16:59)
[2022-08-25] MEDS: OLANZapine 10 MG RAPDIS TABLET PO SCH (20:30)
[2022-08-26 08:33] VITALS: BP 109/70
[2022-08-26] MEDS: OMEGA-3/DHA/EPA/FISH OIL 1,000 MG CAPSULE PO SCH (08:53)
[2022-08-26] MEDS: MUPIROCIN CALCIUM 2% 22 GM OINTMENT NASAL SCH ×2 (08:53→15:42)
[2022-08-26] MEDS: MULTIVITAMINS WITH MINERALS, THERAPEUTIC TABLET PO SCH (08:54)
[2022-08-26] MEDS: THIAMINE 100 MG TABLET PO SCH ×2 (08:54→15:42)
[2022-08-26] MEDS: NALTREXONE HCL 50 MG TABLET PO SCH (08:54)
[2022-08-26] MEDS: FOLIC ACID 1 MG TABLET PO SCH (08:54)
[2022-08-26] MEDS: LORazepam 2 MG TABLET PO PRN ×2 (08:54→14:10)
[2022-08-26] MEDS: OLANZapine 5 MG RAPDIS TABLET PO PRN ×2 (08:54→14:10)
[2022-08-26 16:21] VITALS: BP 103/63
[2022-08-26] MEDS: OLANZapine 10 MG RAPDIS TABLET PO SCH (20:18)
[2022-08-27 07:17] LABS: COVID AG,FIA SOURCE NASAL SWAB
[2022-08-27 08:00] VITALS: BP 110/77
[2022-08-27] MEDS: MULTIVITAMINS WITH MINERALS, THERAPEUTIC TABLET PO SCH (08:15)
[2022-08-27] MEDS: MUPIROCIN CALCIUM 2% 22 GM OINTMENT NASAL SCH ×2 (08:15→16:10)
[2022-08-27] MEDS: THIAMINE 100 MG TABLET PO SCH ×2 (08:15→16:10)
[2022-08-27] MEDS: OMEGA-3/DHA/EPA/FISH OIL 1,000 MG CAPSULE PO SCH (08:15)
[2022-08-27] MEDS: FOLIC ACID 1 MG TABLET PO SCH (08:15)
[2022-08-27] MEDS: NALTREXONE HCL 50 MG TABLET PO SCH (08:15)
[2022-08-27] MEDS: LORazepam 2 MG TABLET PO PRN ×2 (08:16→16:10)
[2022-08-27] MEDS: OLANZapine 5 MG RAPDIS TABLET PO PRN ×2 (08:24→16:10)
[2022-08-27] MEDS: OLANZapine 10 MG RAPDIS TABLET PO SCH (20:56)
[2022-08-28 08:00] VITALS: BP 111/72
[2022-08-28] MEDS: FOLIC ACID 1 MG TABLET PO SCH (08:18)
[2022-08-28] MEDS: NALTREXONE HCL 50 MG TABLET PO SCH (08:18)
[2022-08-28] MEDS: OLANZapine 5 MG RAPDIS TABLET PO PRN (08:18)
[2022-08-28] MEDS: LORazepam 2 MG TABLET PO PRN ×2 (08:18→15:10)
[2022-08-28] MEDS: THIAMINE 100 MG TABLET PO SCH ×2 (08:18→16:51)
[2022-08-28] MEDS: OMEGA-3/DHA/EPA/FISH OIL 1,000 MG CAPSULE PO SCH (08:20)
[2022-08-28] MEDS: MULTIVITAMINS WITH MINERALS, THERAPEUTIC TABLET PO SCH (08:23)
[2022-08-28] MEDS: MUPIROCIN CALCIUM 2% 22 GM OINTMENT NASAL SCH ×2 (08:23→16:52)
[2022-08-28] MEDS ORDERED: PIPERONYL BUTOXIDE/PYRETHRINS 120 ML SHAMPOO TP ONE (10:00)
[2022-08-28 16:42] VITALS: BP 114/74
[2022-08-28] MEDS: OLANZapine 10 MG RAPDIS TABLET PO SCH (21:01)
[2022-08-29] MEDS: NALTREXONE HCL 50 MG TABLET PO SCH (07:59)
[2022-08-29] MEDS: LORazepam 2 MG TABLET PO PRN (07:59)
[2022-08-29] MEDS: THIAMINE 100 MG TABLET PO SCH ×2 (07:59→16:17)
[2022-08-29] MEDS: MUPIROCIN CALCIUM 2% 22 GM OINTMENT NASAL SCH (07:59)
[2022-08-29] MEDS: OMEGA-3/DHA/EPA/FISH OIL 1,000 MG CAPSULE PO SCH (07:59)
[2022-08-29] MEDS: FOLIC ACID 1 MG TABLET PO SCH (07:59)
[2022-08-29] MEDS: MULTIVITAMINS WITH MINERALS, THERAPEUTIC TABLET PO SCH (07:59)
[2022-08-29 08:00] VITALS: BP 104/61
[2022-08-29] MEDS: OLANZapine 5 MG RAPDIS TABLET PO PRN (14:53)
[2022-08-29 16:00] VITALS: BP 111/62
[2022-08-29] MEDS: OLANZapine 10 MG RAPDIS TABLET PO SCH (20:11)
[2022-08-30] MEDS: MULTIVITAMINS WITH MINERALS, THERAPEUTIC TABLET PO SCH (08:02)
[2022-08-30] MEDS: THIAMINE 100 MG TABLET PO SCH ×2 (08:02→17:36)
[2022-08-30] MEDS: LORazepam 2 MG TABLET PO PRN ×2 (08:02→15:39)
[2022-08-30] MEDS: OLANZapine 5 MG RAPDIS TABLET PO PRN (08:02)
[2022-08-30] MEDS: NALTREXONE HCL 50 MG TABLET PO SCH (08:02)
[2022-08-30] MEDS: OMEGA-3/DHA/EPA/FISH OIL 1,000 MG CAPSULE PO SCH (08:03)
[2022-08-30] MEDS: FOLIC ACID 1 MG TABLET PO SCH (08:03)
[2022-08-30 08:38] VITALS: BP 104/67
[2022-08-30 16:51] VITALS: BP 116/58
[2022-08-30] MEDS: OLANZapine 10 MG RAPDIS TABLET PO SCH (20:12)
[2022-08-31] MEDS: NALTREXONE HCL 50 MG TABLET PO SCH (07:57)
[2022-08-31] MEDS: MULTIVITAMINS WITH MINERALS, THERAPEUTIC TABLET PO SCH (07:58)
[2022-08-31] MEDS: OMEGA-3/DHA/EPA/FISH OIL 1,000 MG CAPSULE PO SCH (07:58)
[2022-08-31] MEDS: THIAMINE 100 MG TABLET PO SCH ×2 (07:58→16:38)
[2022-08-31] MEDS: FOLIC ACID 1 MG TABLET PO SCH (07:58)
[2022-08-31] MEDS: LORazepam 2 MG TABLET PO PRN ×2 (07:58→15:19)
[2022-08-31 08:06] VITALS: BP 103/69
[2022-08-31 16:01] VITALS: BP 110/65
[2022-08-31] MEDS: OLANZapine 10 MG RAPDIS TABLET PO SCH (20:51)
[2022-09-01] MEDS: NALTREXONE HCL 50 MG TABLET PO SCH (08:12)
[2022-09-01] MEDS: FOLIC ACID 1 MG TABLET PO SCH (08:12)
[2022-09-01] MEDS: THIAMINE 100 MG TABLET PO SCH (08:12)
[2022-09-01] MEDS: MULTIVITAMINS WITH MINERALS, THERAPEUTIC TABLET PO SCH (08:12)
[2022-09-01] MEDS: OMEGA-3/DHA/EPA/FISH OIL 1,000 MG CAPSULE PO SCH (08:12)
[2022-09-01] MEDS: LORazepam 2 MG TABLET PO PRN ×2 (08:12→15:21)
[2022-09-01 08:13] VITALS: BP 102/66
[2022-09-01 16:02] VITALS: BP 104/62
[2022-09-01] MEDS: OLANZapine 10 MG RAPDIS TABLET PO SCH (20:34)
[2022-09-02] MEDS: NALTREXONE HCL 50 MG TABLET PO SCH (08:05)
[2022-09-02] MEDS: MULTIVITAMINS WITH MINERALS, THERAPEUTIC TABLET PO SCH (08:05)
[2022-09-02] MEDS: OMEGA-3/DHA/EPA/FISH OIL 1,000 MG CAPSULE PO SCH (08:05)
[2022-09-02] MEDS: LORazepam 2 MG TABLET PO PRN ×2 (08:22→17:36)
[2022-09-02 08:31] VITALS: BP 105/64
[2022-09-02 16:36] VITALS: BP 103/63
[2022-09-02] MEDS: OLANZapine 10 MG RAPDIS TABLET PO SCH (20:23)
[2022-09-03 08:12] VITALS: BP 116/69
[2022-09-03] MEDS: NALTREXONE HCL 50 MG TABLET PO SCH (08:14)
[2022-09-03] MEDS: LORazepam 2 MG TABLET PO PRN ×2 (08:14→13:28)
[2022-09-03] MEDS: OMEGA-3/DHA/EPA/FISH OIL 1,000 MG CAPSULE PO SCH (08:14)
[2022-09-03] MEDS: MULTIVITAMINS WITH MINERALS, THERAPEUTIC TABLET PO SCH (08:14)
[2022-09-03] MEDS: ACETAMINOPHEN 325 MG TABLET PO PRN (08:15)
[2022-09-03 16:04] VITALS: BP 100/56
[2022-09-03] MEDS: OLANZapine 10 MG RAPDIS TABLET PO SCH (20:04)
[2022-09-04] MEDS: LORazepam 2 MG TABLET PO PRN ×2 (07:24→13:35)
[2022-09-04] MEDS: OMEGA-3/DHA/EPA/FISH OIL 1,000 MG CAPSULE PO SCH (07:24)
[2022-09-04] MEDS: NALTREXONE HCL 50 MG TABLET PO SCH (07:24)
[2022-09-04] MEDS: MULTIVITAMINS WITH MINERALS, THERAPEUTIC TABLET PO SCH (07:24)
[2022-09-04] MEDS: OLANZapine 5 MG RAPDIS TABLET PO PRN ×2 (07:24→13:35)
[2022-09-04] MEDS: ACETAMINOPHEN 325 MG TABLET PO PRN ×2 (07:25→16:50)
[2022-09-04 08:17] VITALS: BP 104/57
[2022-09-04 08:36] LABS: COVID AG,FIA SOURCE NASAL SWAB
[2022-09-04 16:35] VITALS: BP 119/70
[2022-09-04] MEDS: OLANZapine 10 MG RAPDIS TABLET PO SCH (20:19)
[2022-09-05] MEDS: MULTIVITAMINS WITH MINERALS, THERAPEUTIC TABLET PO SCH (08:13)
[2022-09-05] MEDS: LORazepam 2 MG TABLET PO PRN ×2 (08:13→13:30)
[2022-09-05] MEDS: NALTREXONE HCL 50 MG TABLET PO SCH (08:13)
[2022-09-05] MEDS: OMEGA-3/DHA/EPA/FISH OIL 1,000 MG CAPSULE PO SCH (08:13)
[2022-09-05 08:54] VITALS: BP 102/60
[2022-09-05 16:29] VITALS: BP 115/70
[2022-09-05] MEDS: ZOLPIDEM TARTRATE 10 MG TABLET PO PRN (20:11)
[2022-09-05] MEDS: OLANZapine 10 MG RAPDIS TABLET PO SCH (20:11)
[2022-09-06] MEDS: MULTIVITAMINS WITH MINERALS, THERAPEUTIC TABLET PO SCH (08:14)
[2022-09-06] MEDS: NALTREXONE HCL 50 MG TABLET PO SCH ×2 (08:14→09:00)
[2022-09-06] MEDS: OMEGA-3/DHA/EPA/FISH OIL 1,000 MG CAPSULE PO SCH (08:14)
[2022-09-06] MEDS: LORazepam 2 MG TABLET PO PRN ×2 (08:58→15:25)
[2022-09-06 09:28] VITALS: BP 112/73
[2022-09-06 17:10] VITALS: BP 106/65
[2022-09-06] MEDS: OLANZapine 10 MG RAPDIS TABLET PO SCH (20:30)
[2022-09-06] MEDS ORDERED: EPIN0.3P3 IM (20:35)
[2022-09-06] MEDS ORDERED: MELATONIN 5 MG TABLET PO SCH (21:00)
[2022-09-06] MEDS: ZOLPIDEM TARTRATE 10 MG TABLET PO PRN (21:25)
[2022-09-07] MEDS: OMEGA-3/DHA/EPA/FISH OIL 1,000 MG CAPSULE PO SCH (08:21)
[2022-09-07] MEDS: MULTIVITAMINS WITH MINERALS, THERAPEUTIC TABLET PO SCH (08:21)
[2022-09-07] MEDS: NALTREXONE HCL 50 MG TABLET PO SCH (08:21)
[2022-09-07 08:31] VITALS: BP 104/60
[2022-09-07] MEDS ORDERED: OLAN10TA26 PO (08:32)
[2022-09-07] MEDS ORDERED: OMEG-135 PO (08:33)
== END 2022-09-07 10:30 | disposition home or self-care (01) | DRG 750 ==
LOC: 3EC 21:39
PROVIDERS: ADMIT Psychiatry & Neurology Psychiatry; ATTEND Psychiatry & Neurology Psychiatry
DX: F25.0 Schizoaffective disorder, bipolar type (principal); E46 Unspecified protein-calorie malnutrition; R45.851 Suicidal ideations; D64.9 Anemia, unspecified; E11.65 Type 2 diabetes mellitus with hyperglycemia; E83.42 Hypomagnesemia; E87.6 Hypokalemia; Z20.822 Contact with and (suspected) exposure to COVID-19; Z68.1 Body mass index [BMI] 19.9 or less, adult; F39 Unspecified mood [affective] disorder; F41.9 Anxiety disorder, unspecified; J44.9 Chronic obstructive pulmonary disease, unspecified; T78.3XXA Angioneurotic edema, initial encounter; Z55.9 Problems related to education and literacy, unspecified; Z59.9 Problem related to housing and economic circumstances, unspecified; Z63.9 Problem related to primary support group, unspecified; Z65.3 Problems related to other legal circumstances; Z74.01 Bed confinement status; Z87.891 Personal history of nicotine dependence
CPT/HCPCS: 80053; 85025; 87081; 92526; 92610; Q9967